=== PATIENT | female | born 1950 | race African-American/Black ===

== ENCOUNTER 2023-07-23 23:17 | Inpatient (IN) | payer OTHER ==
--- OUTSIDE RECORDS SUMMARY | 2023-07-23 23:20 | XMS REPORT | Continuity of Care Document ---
Author Name Unknown Address [address] [facility] [address] [place] [address] [facility] Address [address] [facility] 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 Benign hypertensi on with chronic kidney disease, stage III Problem [facility] [id number] Spasm of muscle of lower back Problem [facility] [id number] Strain of lumbar region, initial encounter Problem [facility] [id number] Muscle spasms of both lower extremitie s Problem [facility] [id number] Obesity (BMI 30-39.9) Problem [facility] Hypertensi on Hypertensi on Problem [facility] [id number] Stage 3a chronic kidney disease Problem [facility] Allergies, Adverse Reactions, Alerts Allergy Name Allergy Type Status Severity Reaction(s) Onset Date Inactive Date Treating Clinician Comments Source Penicill in Penic[place] in Active rash [facility] Social History Social Habit Start Date Stop Date Quantity Comments Source History of Tobacco Use [facility] Sex Assigned At [facility] Smoking Status Start Date Stop Date Source Never Smoker [facility] Medications Ordered Medication Name Filled Medication Name Start Date Stop Date Current Medication? Ordering Clinician Indication Dosage Frequency Signature (SIG) Comments Components Source Fluticasone Propionate 50 MCG/ACT Fluticasone Propionate 50 MCG/ACT 3-0 12-20 00:00: 00 No 1{spray _in_eac h_nostr il} QD Fluticason e Propionate 50 MCG/ACT Loratadine 10 MG Loratadine 10 MG 2022-0 12-20 00:00: 00 No 1{table t} QD Loratadine 10 MG Benzonatate 100 MG Benzonatate 100 MG 2022-0 12-20 00:00: 00 No 1{capsu le_as_n eeded} TID Benzonatat e 100 MG Fluticasone Propionate 50 MCG/ACT Fluticasone Propionate 50 MCG/ACT 2022-0 12-20 00:00: 00 No 1{spray _in_eac h_nostr il} QD Fluticason e Propionate 50 MCG/ACT Loratadine 10 MG Loratadine 10 MG 0 12-20 00:00: 00 No 1{table t} QD Loratadine 10 MG Benzonatate 100 MG Benzonatate 100 MG 2022-0 12-20 00:00: 00 No 1{capsu le_as_n eeded} TID Benzonatat e 100 MG Fluticasone Propionate 50 MCG/ACT Fluticasone Propionate 50 MCG/ACT 2022-0 12-20 00:00: 00 No 1{spray _in_eac h_nostr il} QD Fluticason e Propionate 50 MCG/ACT Loratadine 10 MG Loratadine 10 MG 2022-0 12-20 00:00: 00 No 1{table t} QD Loratadine 10 MG Benzonatate 100 MG Benzonatate 100 MG 2022-0 12-20 00:00: 00 No 1{capsu le_as_n eeded} TID Benzonatat e 100 MG Fluticasone Propionate 50 MCG/ACT Fluticasone Propionate 50 MCG/ACT 3-0 12-20 00:00: 00 No 1{spray _in_eac h_nostr il} QD Fluticason e Propionate 50 MCG/ACT Loratadine 10 MG Loratadine 10 MG 2022-0 12-20 00:00: 00 No 1{table t} QD Loratadine 10 MG Benzonatate 100 MG Benzonatate 100 MG 2022-0 12-20 00:00: 00 No 1{capsu le_as_n eeded} TID Benzonatat e 100 MG Loratadine 10 MG Loratadine 10 MG 2022-0 12-20 00:00: 00 No 1{table t} QD Loratadine 10 MG Fluticasone Propionate 50 MCG/ACT Fluticasone Propionate 50 MCG/ACT 3-0 12-20 00:00: 00 No 1{spray _in_eac h_nostr il} QD Fluticason e Propionate 50 MCG/ACT Loratadine 10 MG Loratadine 10 MG 2022-0 12-20 00:00: 00 No 1{table t} QD Loratadine 10 MG Fluticasone Propionate 50 MCG/ACT Fluticasone Propionate 50 MCG/ACT 3-0 12-20 00:00: 00 No 1{spray _in_eac h_nostr il} QD Fluticason e Propionate 50 MCG/ACT Loratadine 10 MG Loratadine 10 MG 2022-0 12-20 00:00: 00 No 1{table t} QD Loratadine 10 MG Fluticasone Propionate 50 MCG/ACT Fluticasone Propionate 50 MCG/ACT 3-0 12-20 00:00: 00 No 1{spray _in_eac h_nostr il} QD Fluticason e Propionate 50 MCG/ACT Loratadine 10 MG Loratadine 10 MG 2022-0 12-20 00:00: 00 No 1{table t} QD Loratadine 10 MG Fluticasone Propionate 50 MCG/ACT Fluticasone Propionate 50 MCG/ACT 3-0 12-20 00:00: 00 No 1{spray _in_eac h_nostr il} QD Fluticason e Propionate 50 MCG/ACT Loratadine 10 MG Loratadine 10 MG 2022-0 12-20 00:00: 00 No 1{table t} QD Loratadine 10 MG Fluticasone Propionate 50 MCG/ACT Fluticasone Propionate 50 MCG/ACT 2023-0 7-11 00:00: 00 No 1{spray _in_eac h_nostr il} QD Fluticason e Propionate 50 MCG/ACT Loratadine 10 MG Loratadine 10 MG 3-0 7-11 00:00: 00 No 1{table t} QD Loratadine 10 MG Fluticasone Propionate 50 MCG/ACT Fluticasone Propionate 50 MCG/ACT 2023-0 7-11 00:00: 00 No 1{spray _in_eac h_nostr il} QD Fluticason e Propionate 50 MCG/ACT Loratadine 10 MG Loratadine 10 MG 3-0 7-11 00:00: 00 No 1{table t} QD Loratadine 10 MG Fluticasone Propionate 50 MCG/ACT Fluticasone Propionate 50 MCG/ACT 3-0 7-11 00:00: 00 No 1{spray _in_eac h_nostr il} QD Fluticason e Propionate 50 MCG/ACT Ketorolac 15mg Ketorolac 15mg 2022-0 5-17 00:00: 00 No [facility]mg [facility] Ketorolac 15mg Ketorolac 15mg 2022-0 5-17 00:00: 00 No 30mg [facility] Ketorolac 15mg Ketorolac 15mg 2022-0 5-17 00:00: 00 No 30mg [facility] Ketorolac 15mg Ketorolac 15mg 2022-0 5-17 00:00: 00 No 30mg [facility] Ketorolac 15mg Ketorolac 15mg 2022-0 5-17 00:00: 00 No 30mg [facility] Ketorolac 15mg Ketorolac 15mg 2022-0 5-17 00:00: 00 No 30mg [facility] Ketorolac 15mg Ketorolac 15mg 2022-0 5-17 00:00: 00 No 30mg [facility] Ketorolac 15mg Ketorolac 15mg 2022-0 5-17 00:00: 00 No 30mg [facility] Ketorolac 15mg Ketorolac 15mg 2022-0 5-17 00:00: 00 No 30mg [facility] Ketorolac 15mg Ketorolac 15mg 2022-0 5-17 00:00: 00 No 30mg [facility] Ketorolac 15mg Ketorolac 15mg 2022-0 5-17 00:00: 00 No 30mg [facility] Ketorolac 15mg Ketorolac 15mg 2022-0 5-17 00:00: 00 No 30mg [facility] Ketorolac 15mg Ketorolac 15mg 2022-0 5-17 00:00: 00 No 30mg [facility] Ketorolac 15mg Ketorolac 15mg 2022-0 5-17 00:00: 00 No 30mg [facility] Ketorolac 15mg Ketorolac 15mg 2022-0 5-17 00:00: 00 No 30mg [facility] Ketorolac 15mg Ketorolac 15mg 2022-0 5-17 00:00: 00 No 30mg [facility] Ketorolac 15mg Ketorolac 15mg 2022-0 5-17 00:00: 00 No 30mg [facility] Ketorolac 15mg Ketorolac 15mg 2022-0 5-17 00:00: 00 No 30mg [facility] tiZANidine HCl 4 MG tiZANidine HCl 4 MG 2-0 5-17 00:00: 00 05-24 00:00 :00 No 1{table t_as_ne eded} TID tiZANidine HCl 4 MG Lisinopril Lisinopril 2019-0 6- 00:00: 00 Yes Maddie Hart 1 tablet [facility] Lisinopril 10 MG Lisinopril 10 MG 2019-0 6- 00:00: 00 No 1{table t} QD Lisinopril 10 MG Aspirin Adult Low Strength Aspirin Adult Low Strength Yes Maddie Hart 1 tablet Common [facility] Atenolol Atenolol Yes Maddie Hart take one tablet by mouth [facility] Aspirin Adult Low Strength 81 MG Aspirin Adult Low Strength 81 MG No 1{table t} QD Aspirin Adult Low Strength 81 MG Lisinopril 10 MG Lisinopril 10 MG No 1{table t} QD Lisinopril 10 MG Atenolol 100 MG Atenolol 100 MG No 1{table t} QD Atenolol 100 MG Lisinopril 10 MG Lisinopril 10 MG No 1{table t} QD Lisinopril 10 MG Aspirin Adult Low Strength 81 MG Aspirin Adult Low Strength 81 MG No 1{table t} QD Aspirin Adult Low Strength 81 MG Atenolol 100 MG Atenolol 100 MG No 1{table t} QD Atenolol 100 MG Atenolol 100 MG Atenolol 100 MG No 1{table t} QD Atenolol 100 MG Aspirin Adult Low Strength 81 MG Aspirin Adult Low Strength 81 MG No 1{table t} QD Aspirin Adult Low Strength 81 MG Lisinopril 10 MG Lisinopril 10 MG No 1{table t} QD Lisinopril 10 MG Atenolol 100 MG Atenolol 100 MG No 1{table t} QD Atenolol 100 MG Lisinopril 30 MG Lisinopril 30 MG No 1{table t} QD Lisinopril 30 MG Atenolol 100 MG Atenolol 100 MG No 1{table t} QD Atenolol 100 MG Lisinopril 10 MG Lisinopril 10 MG No 1{table t} QD Lisinopril 10 MG Atenolol 100 MG Atenolol 100 MG No 1{table t} QD Atenolol 100 MG Lisinopril 30 MG Lisinopril 30 MG No 1{table t} QD Lisinopril 30 MG Atenolol 100 MG Atenolol 100 MG No 1{table t} QD Atenolol 100 MG Lisinopril 10 MG Lisinopril 10 MG No 1{table t} QD Lisinopril 10 MG Atenolol 100 MG Atenolol 100 MG No 1{table t} QD Atenolol 100 MG Lisinopril 30 MG Lisinopril 30 MG No 1{table t} QD Lisinopril 30 MG Atenolol 100 MG Atenolol 100 MG No 1{table t} QD Atenolol 100 MG Lisinopril 10 MG Lisinopril 10 MG No 1{table t} QD Lisinopril 10 MG Atenolol 100 MG Atenolol 100 MG No 1{table t} QD Atenolol 100 MG Lisinopril 30 MG Lisinopril 30 MG No 1{table t} QD Lisinopril 30 MG Atenolol 100 MG Atenolol 100 MG No 1{table t} QD Atenolol 100 MG Lisinopril 10 MG Lisinopril 10 MG No 1{table t} QD Lisinopril 10 MG Lisinopril 30 MG Lisinopril 30 MG No 1{table t} QD Lisinopril 30 MG Pantoprazol e Sodium 40 MG Pantoprazol e Sodium 40 MG No Pantoprazo le Sodium 40 MG Atenolol 100 MG Atenolol 100 MG No 1{table t} QD Atenolol 100 MG Lisinopril 30 MG Lisinopril 30 MG No 1{table t} QD Lisinopril 30 MG Pantoprazol e Sodium 40 MG Pantoprazol e Sodium 40 MG No Pantoprazo le Sodium 40 MG Atenolol 100 MG Atenolol 100 MG No 1{table t} QD Atenolol 100 MG Lisinopril 30 MG Lisinopril 30 MG No 1{table t} QD Lisinopril 30 MG Pantoprazol e Sodium 40 MG Pantoprazol e Sodium 40 MG No Pantoprazo le Sodium 40 MG Atenolol 100 MG Atenolol 100 MG No 1{table t} QD Atenolol 100 MG Lisinopril 30 MG Lisinopril 30 MG No 1{table t} QD Lisinopril 30 MG Pantoprazol e Sodium 40 MG Pantoprazol e Sodium 40 MG No Pantoprazo le Sodium 40 MG Atenolol 100 MG Atenolol 100 MG No 1{table t} QD Atenolol 100 MG Lisinopril 30 MG Lisinopril 30 MG No 1{table t} QD Lisinopril 30 MG Pantoprazol e Sodium 40 MG Pantoprazol e Sodium 40 MG No Pantoprazo le Sodium 40 MG Atenolol 100 MG Atenolol 100 MG No 1{table t} QD Atenolol 100 MG Lisinopril 30 MG Lisinopril 30 MG No 1{table t} QD Lisinopril 30 MG Pantoprazol e Sodium 40 MG Pantoprazol e Sodium 40 MG No Pantoprazo le Sodium 40 MG Atenolol 100 MG Atenolol 100 MG No 1{table t} QD Atenolol 100 MG Atenolol 100 MG Atenolol 100 MG No Atenolol 100 MG Lisinopril 30 MG Lisinopril 30 MG No 1{table t} QD Lisinopril 30 MG Pantoprazol e Sodium 40 MG Pantoprazol e Sodium 40 MG No Pantoprazo le Sodium 40 MG Atenolol 100 MG Atenolol 100 MG No 1{table t} QD Atenolol 100 MG Aspirin Adult Low Strength 81 MG Aspirin Adult Low Strength 81 MG No 1{table t} QD Aspirin Adult Low Strength 81 MG Lisinopril 10 MG Lisinopril 10 MG No 1{table t} QD Lisinopril 10 MG Atenolol 100 MG Atenolol 100 MG No 1{table t} QD Atenolol 100 MG Aspirin Adult Low Strength 81 MG Aspirin Adult Low Strength 81 MG No 1{table t} QD Aspirin Adult Low Strength 81 MG Aspirin Adult Low Strength 81 MG Aspirin Adult Low Strength 81 MG No 1{table t} QD Aspirin Adult Low Strength 81 MG Lisinopril 10 MG Lisinopril 10 MG No 1{table t} QD Lisinopril 10 MG Atenolol 100 MG Atenolol 100 MG No 1{table t} QD Atenolol 100 MG Aspirin Adult Low Strength 81 MG Aspirin Adult Low Strength 81 MG No 1{table t} QD Aspirin Adult Low Strength 81 MG Lisinopril 10 MG Lisinopril 10 MG No 1{table t} QD Lisinopril 10 MG Atenolol 100 MG Atenolol 100 MG No 1{table t} QD Atenolol 100 MG Vital Signs Vital Name Observation Time Observation Value Comments S lynda height 2023-05-26 11:20:00 59 [in_i] Commo n [facility] weight 2023-05-26 11:20:00 164.4 [lb_av] Co [facility] temperature 2023-05-26 11:20:00 97.1 [degF] Com mon [facility] bmi 2023-05-26 11:20:00 33.2 kg/m2 Commo n [facility] oximetry 2023-05-26 11:20:00 99 % Commo n [facility] respiratory rate 2023-05-26 11:20:00 16 /min [facility] blood pressure systolic 2023-05-26 11:20:00 132 mm[Hg] [facility] blood pressure diastolic 2023-05-26 11:20:00 76 mm[Hg] [facility] height 2023-02-23 11:00:00 59 [in_i] Commo n [facility] weight 2023-02-23 11:00:00 167.4 [lb_av] Co mmon [facility] temperature 2023-02-23 11:00:00 97.3 [degF] Com [facility] bmi 2023-02-23 11:00:00 33.81 kg/m2 Comm on [facility] oximetry 2023-02-23 11:00:00 96 % Commo n [facility] respiratory rate 2023-02-23 11:00:00 16 /min [facility] blood pressure systolic 2023-02-23 11:00:00 138 mm[Hg] [facility] blood pressure diastolic 2023-02-23 11:00:00 82 mm[Hg] [facility] height 2023-01-20 13:00:00 59 [in_i] Commo n [facility] weight 2023-01-20 13:00:00 168.6 [lb_av] Co mmon [facility] temperature 2023-01-20 13:00:00 97.9 [degF] Com [facility] bmi 2023-01-20 13:00:00 34.05 kg/m2 Comm on [facility] oximetry 2023-01-20 13:00:00 98 % Commo n [facility] respiratory rate 2023-01-20 13:00:00 16 /min [facility] blood pressure systolic 2023-01-20 13:00:00 134 mm[Hg] [facility] blood pressure diastolic 2023-01-20 13:00:00 82 mm[Hg] [facility] height 2023-01-20 13:20:00 59 [in_i] Commo n [facility] weight 2023-01-20 13:20:00 168.6 [lb_av] Co mmon [facility] temperature 2023-01-20 13:20:00 97.9 [degF] Com [facility] bmi 2023-01-20 13:20:00 34.05 kg/m2 Comm on [facility] oximetry 2023-01-20 13:20:00 98 % Commo n [facility] respiratory rate 2023-01-20 13:20:00 16 /min Common [facility] blood pressure systolic 2023-01-20 13:20:00 134 mm[Hg] [facility] blood pressure diastolic 2023-01-20 13:20:00 82 mm[Hg] [facility] height 2022-12-20 11:40:00 59 [in_i] Commo n [facility] weight 2022-12-20 11:40:00 171 [lb_av] Comm on [facility] temperature 2022-12-20 11:40:00 98.6 [degF] Com [facility] bmi 2022-12-20 11:40:00 34.53 kg/m2 Comm on [facility] height 2022-08-31 10:20:00 59 [in_i] Commo n [facility] weight 2022-08-31 10:20:00 172 [lb_av] Comm on [facility] temperature 2022-08-31 10:20:00 98.0 [degF] Com mon [facility] bmi 2022-08-31 10:20:00 34.74 kg/m2 Comm on [facility] oximetry 2022-08-31 10:20:00 99 % Commo n [facility] respiratory rate 2022-08-31 10:20:00 17 /min Common [facility] blood pressure systolic 2022-08-31 10:20:00 134 mm[Hg] [facility] blood pressure diastolic 2022-08-31 10:20:00 78 mm[Hg] Common [facility] height 2022-06-20 11:40:00 59 [in_i] Commo n [facility] weight 2022-06-20 11:40:00 175 [lb_av] Comm on [facility] temperature 2022-06-20 11:40:00 97.7 [degF] Com [facility] bmi 2022-06-20 11:40:00 35.34 kg/m2 Comm on [facility] oximetry 2022-06-20 11:40:00 97 % Commo n [facility] respiratory rate 2022-06-20 11:40:00 16 /min Common [facility] blood pressure systolic 2022-06-20 11:40:00 128 mm[Hg] [facility] blood pressure diastolic 2022-06-20 11:40:00 76 mm[Hg] Common [facility] height 2022-03-07 09:20:00 59 [in_i] Commo n [facility] weight 2022-03-07 09:20:00 181.2 [lb_av] Co mmon [facility] temperature 2022-03-07 09:20:00 97.8 [degF] Com [facility] bmi 2022-03-07 09:20:00 36.59 kg/m2 Comm on [facility] oximetry 2022-03-07 09:20:00 98 % Commo n [facility] respiratory rate 2022-03-07 09:20:00 16 /min [facility] blood pressure systolic 2022-03-07 09:20:00 120 mm[Hg] [facility] blood pressure diastolic 2022-03-07 09:20:00 72 mm[Hg] [facility] height 2021-12-06 15:20:00 59 [in_i] Commo n [facility] weight 2021-12-06 15:20:00 186.2 [lb_av] Co [facility] temperature 2021-12-06 15:20:00 98.4 [degF] Com [facility] bmi 2021-12-06 15:20:00 37.6 kg/m2 Commo n [facility] oximetry 2021-12-06 15:20:00 98 % Commo n [facility] respiratory rate 2021-12-06 15:20:00 16 /min [facility] blood pressure systolic 2021-12-06 15:20:00 132 mm[Hg] [facility] blood pressure diastolic 2021-12-06 15:20:00 74 mm[Hg] [facility] height 2021-12-06 16:00:00 59 [in_i] Commo n [facility] weight 2021-12-06 16:00:00 186.2 [lb_av] Co [facility] temperature 2021-12-06 16:00:00 98.4 [degF] Com [facility] bmi 2021-12-06 16:00:00 37.6 kg/m2 Commo n [facility] oximetry 2021-12-06 16:00:00 98 % Commo n [facility] respiratory rate 2021-12-06 16:00:00 16 /min [facility] blood pressure systolic 2021-12-06 16:00:00 132 mm[Hg] Common [facility] blood pressure diastolic 2021-12-06 16:00:00 74 mm[Hg] [facility] height 2021-10-26 14:00:00 59 [in_i] Commo n [facility] weight 2021-10-26 14:00:00 187.6 [lb_av] Co mmon [facility] temperature 2021-10-26 14:00:00 97.5 [degF] Com mon [facility] bmi 2021-10-26 14:00:00 37.89 kg/m2 Comm on [facility] oximetry 2021-10-26 14:00:00 98 % Commo n [facility] respiratory rate 2021-10-26 14:00:00 16 /min [facility] blood pressure systolic 2021-10-26 14:00:00 136 mm[Hg] [facility] blood pressure diastolic 2021-10-26 14:00:00 82 mm[Hg] [facility] Encounters Start Date/Time End Date/Time Encounter Type Admission Type Attending Clinicians Care Facility Care Department Encounter ID Source 2023-01-19 09:15:00 Outpatient [facility]isa sharpe [facility] [id number] [facility] 2022-08-30 13:57:00 Outpatient Teto Lisa [facility] [id number] [facility] 2022-06-20 09:35:00 Outpatient T[facility]Theroni [facility] [id number] [facility] 2021-12-02 13:22:01 Outpatient TetoLisa [facility] [id number] [facility] 2021-10-28 12:27:03 Outpatient Lisa Irene [facility] [id number] [facility] 2021-10-25 14:30:01 Outpatient Lisa Irene [facility] [id number] [facility] 2021-10-22 13:50:00 Outpatient Maddie Hart [facility] [id number] [facility] 2021-07-07 12:24:19 Outpatient Maddie Hart [facility] [id number] [facility] 2021-07-07 11:54:33 Outpatient Maddie Hart [facility] [id number] [facility] 2021-07-07 11:31:04 Outpatient Maddie Hart [facility] [id number] [facility] 2023-06-15 00:00:00 2023-06-15 00:00:00 (TEL) [facility] [id number] [facility] 2023-05-26 00:00:00 2023-05-26 00:00:00 OFFICE VISIT ESTAB PT LEVEL 4 [facility] [id number] [facility] 2023-05-09 00:00:00 2023-05-09 00:00:00 (TEL) [facility] [id number] [facility] 2023-02-23 00:00:00 2023-02-23 00:00:00 OFFICE VISIT ESTAB PT LEVEL 4 [facility] [id number] [facility] 2023-02-16 00:00:00 2023-02-16 00:00:00 (TEL) [facility] [id number] [facility] 2023-01-20 00:00:00 2023-01-20 00:00:00 OFFICE VISIT ESTAB PT LEVEL 4 [facility] [id number] [facility] 2023-01-20 00:00:00 2023-01-20 00:00:00 SUB ANNUAL [facility] VIS[facility] [id number] [facility] 2023-01-12 00:00:00 2023-01-12 00:00:00 (TEL) [facility] [id number] [facility] 2022-12-20 00:00:00 2022-12-20 00:00:00 OFFICE VISIT ESTAB PT LEVEL 3 [facility] [id number] [facility] 2022-08-31 00:00:00 2022-08-31 00:00:00 OFFICE VISIT ESTAB PT LEVEL 4 [facility] [id number] [facility] 2022-06-20 00:00:00 2022-06-20 00:00:00 OFFICE VISIT ESTAB PT LEVEL 3 [facility] [id number] [facility] 2022-03-07 00:00:00 2022-03-07 00:00:00 OFFICE VISIT ESTAB PT LEVEL 4 [facility] [id number] [facility] 2022-02-22 00:00:00 2022-02-22 00:00:00 (TEL) [facility] [id number] [facility] 2021-12-06 00:00:00 2021-12-06 00:00:00 OFFICE VISIT EST PT LEVEL 3 [facility] [id number] [facility] 2021-12-06 00:00:00 2021-12-06 00:00:00 (MCR WELL) Medicare Wellness [facility] [id number] [facility] 2021-12-06 00:00:00 2021-12-06 00:00:00 (TEL) [facility] [id number] [facility] 2021-10-26 00:00:00 2021-10-26 00:00:00 OFFICE VISIT EST PT LEVEL [id number] [facility] 2020-10-05 00:00:00 2020-10-05 00:00:[address] [facility] [id number] [facility] 2020-09-02 00:00:00 2020-09-02 00:00:00 Outpatient [facility] [id number] [facility] 2020-07-06 00:00:00 2020-07-06 00:00:00 Outpatient [facility] [id number] [facility] 2020-06-17 00:00:00 2020-06-17 00:00:00 Outpatient [facility] [id number] [facility] 2020-04-14 00:00:00 2020-04-14 00:00:00 Outpatient [facility] [id number] [facility] 2019-12-25 11:40:00 2019-12-25 11:40:[address] [facility] [id number] [facility] 2019-11-11 11:40:00 2019-11-11 11:40:00 [facility] [id number] [facility] 2019-08-13 09:00:00 2019-08-13 09:00:[address] [facility] [id number] [facility] 2019-05-10 08:20:00 2019-05-10 08:20:[address] [facility] [id number] [facility] 2018-08-24 09:41:00 2018-08-24 09:41:00 [facility] [address] [facility] [id number] [facility] 2018-07-05 10:00:00 2018-07-05 10:00:00 Outpatient [facility] [id number] [facility] 2018-02-09 10:52:00 2018-02-09 10:52:00 Outpatient [facility] [id number] [facility] 2018 09:34:00 2018 09:34:00 Outpatient [facility] [id number] [facility] 2018-01-29 09:00:00 2018-01-29 09:00:00 Outpatient [facility] [id number] [facility] Results Test Description Test Time Test Comments Results Result Co mments Source [id number] 00:00:00* Test Item Value Reference Range Interpretation Comme nts FERRITIN (test code = 55871-8) 101 NG/ML See_Comment [Automated messa ge] The system which generated this result transmitted reference range: 13-200 NG/ML. The reference range was not used to interpret this result as normal/abnormal. COMPREHENSIVE METABOLIC [id number] 00:00:00* Test Item Value Reference Range Interpretation Comme nts ALBUMIN (test code = 1751-7) 3.3 G/DL See_Comment L [Automated messa ge] The system which generated this result transmitted reference range: 3.5-5.2 G/DL. The reference range was not used to interpret this result as normal/abnormal. ALKALINE PHOSPHATASE (test code = 6768-6) 60 U/L See_Comment [Automated message] The system which generated this result transmitted reference range: 40-142 U/L. The reference range was not used to interpret this result as normal/abnormal. BILIRUBIN, TOTAL (test code = 1975-2) 0.6 MG/DL See_Comment [Automated message] The system which generated this result transmitted reference range: <=1.2 MG/DL. The reference range was not used to interpret this result as normal/abnormal. BUN (test code = 3094-0) 12 MG/DL See_Comment [Automated messa ge] The system which generated this result transmitted reference range: 8-23 MG/DL. The reference range was not used to interpret this result as normal/abnormal. CALCIUM (test code = 58350-0) 9.5 MG/DL See_Comment [Automated messa ge] The system which generated this result transmitted reference range: 8.5-10.5 MG/DL. The reference range was not used to interpret this result as normal/abnormal. CALC A/G RATIO (test code = 1759-0) 0.8 RATIO See_Comment L [Automated messa ge] The system which generated this result transmitted reference range: 1.0-2.6 RATIO. The reference range was not used to interpret this result as normal/abnormal. CALC BUN/CREAT (test code = 3097-3) 13 RATIO See_Comment [Automated messa ge] The system which generated this result transmitted reference range: 6-28 RATIO. The reference range was not used to interpret this result as normal/abnormal. CALC GLOBULIN (test code = 74067-5) 3.9 G/DL See_Comment H [Automated messa ge] The system which generated this result transmitted reference range: 1.9-3.7 G/DL. The reference range was not used to interpret this result as normal/abnormal. CARBON DIOXIDE (test code = 1963-8) 28 MEQ/L See_Comment [Automated messa ge] The system which generated this result transmitted reference range: 19-31 MEQ/L. The reference range was not used to interpret this result as normal/abnormal. CHLORIDE (test code = 2075-0) 108 MEQ/L See_Comment H [Automated messa ge] The system which generated this result transmitted reference range: 95-107 MEQ/L. The reference range was not used to interpret this result as normal/abnormal. CREATININE (test code = 2160-0) 0.92 MG/DL See_Comment [Automated messa ge] The system which generated this result transmitted reference range: 0.60-1.30 MG/DL. The reference range was not used to interpret this result as normal/abnormal. eGFR (2020 CKD-EPI) (test code = 85921-3) 66 ML/MIN/1.73 See_Comment [Automated messa ge] The system which generated this result transmitted reference range: >60 ML/MIN/1.73. The reference range was not used to interpret this result as normal/abnormal. GLUCOSE (test code = 1558-6) 95 MG/DL See_Comment [Automated messa ge] The system which generated this result transmitted reference range: 70-99 MG/DL. The reference range was not used to interpret this result as normal/abnormal. POTASSIUM (test code = 2823-3) 4.5 MEQ/L See_Comment [Automated messa ge] The system which generated this result transmitted reference range: 3.5-5.4 MEQ/L. The reference range was not used to interpret this result as normal/abnormal. PROTEIN, TOTAL (test code = 2885-2) 7.2 G/DL See_Comment [Automated messa ge] The system which generated this result transmitted reference range: 6.1-8.3 G/DL. The reference range was not used to interpret this result as normal/abnormal. AST (test code = 1920-8) 14 U/L See_Comment [Automated messa ge] The system which generated this result transmitted reference range: 9-40 U/L. The reference range was not used to interpret this result as normal/abnormal. ALT (test code = 1742-6) 7 U/L See_Comment [Automated messa ge] The system which generated this result transmitted reference range: 5-40 U/L. The reference range was not used to interpret this result as normal/abnormal. SODIUM (test code = 2951-2) 141 MEQ/L See_Comment [Automated messa ge] The system which generated this result transmitted reference range: 133-146 MEQ/L. The reference range was not used to interpret this result as normal/abnormal. CBC W/AUTO [id number] 00:00:00* Test Item Value Reference Range Interpretation Comme nts NUCLEATED RBCS (test code = 70613-3) 0.0 /100 WBC'S See_Comment [Automated messa ge] The system which generated this result transmitted reference range: 0.0 /100 WBC'S. The reference range was not used to interpret this result as normal/abnormal. ABSOLUTE EOSINOPHILS (test code = 04667-7) 0.07 K/UL See_Comment [Automated messa ge] The system which generated this result transmitted reference range: 0.00-0.50 K/UL. The reference range was not used to interpret this result as normal/abnormal. ABSOLUTE LYMPHOCYTES (test code = 06186-4) 1.80 K/UL See_Comment [Automated messa ge] The system which generated this result transmitted reference range: 1.00-4.00 K/UL. The reference range was not used to interpret this result as normal/abnormal. ABSOLUTE MONOCYTES (test code = 43048-1) 0.26 K/UL See_Comment [Automated messa ge] The system which generated this result transmitted reference range: 0.20-1.00 K/UL. The reference range was not used to interpret this result as normal/abnormal. ABSOLUTE NEUTROPHILS (test code = 95437-0) 1.62 K/UL See_Comment [Automated messa ge] The system which generated this result transmitted reference range: 1.50-7.50 K/UL. The reference range was not used to interpret this result as normal/abnormal. BASOPHILS (test code = 60451-6) 0.5 % EOSINOPHILS (test code = 94069-2) 1.8 % HEMATOCRIT (test code = 77633-8) 29.8 % See_Comment L [Automated messa ge] The system which generated this result transmitted reference range: 34.0-45.0 %. The reference range was not used to interpret this result as normal/abnormal. HEMOGLOBIN (test code = 718-7) 9.2 G/DL See_Comment L [Automated messa ge] The system which generated this result transmitted reference range: 11.5-15.5 G/DL. The reference range was not used to interpret this result as normal/abnormal. LYMPHOCYTES (test code = 94659-2) 47.5 % MCH (test code = 61786-2) 27.5 PG See_Comment [Automated messa ge] The system which generated this result transmitted reference range: 25.0-33.0 PG. The reference range was not used to interpret this result as normal/abnormal. MCHC (test code = 84373-1) 30.9 G/DL See_Comment L [Automated messa ge] The system which generated this result transmitted reference range: 31.0-36.0 G/DL. The reference range was not used to interpret this result as normal/abnormal. MCV (test code = 52545-7) 89.0 fL See_Comment [Automated messa ge] The system which generated this result transmitted reference range: 80.0-99.0 fL. The reference range was not used to interpret this result as normal/abnormal. MONOCYTES (test code = 69593-4) 6.9 % NEUTROPHILS (test code = 39300-1) 42.8 % PLATELET COUNT (test code = 75240-2) 175 K/UL See_Comment [Automated messa ge] The system which generated this result transmitted reference range: 130-400 K/UL. The reference range was not used to interpret this result as normal/abnormal. RBC (test code = 68781-9) 3.35 M/UL See_Comment L [Automated messa ge] The system which generated this result transmitted reference range: 3.80-5.40 M/UL. The reference range was not used to interpret this result as normal/abnormal. RDW (test code = 01794-7) 17.1 % See_Comment H [Automated messa ge] The system which generated this result transmitted reference range: 11.5-15.0 %. The reference range was not used to interpret this result as normal/abnormal. WBC (test code = 20268-6) 3.8 K/UL See_Comment [Automated messa ge] The system which generated this result transmitted reference range: 3.5-11.0 K/UL. The reference range was not used to interpret this result as normal/abnormal. [id number] 00:00:00* Test Item Value Reference Range Interpretation Comme nts FERRITIN (test code = 41292-9) 81 NG/ML See_Comment [Automated messa ge] The system which generated this result transmitted reference range: 13-200 NG/ML. The reference range was not used to interpret this result as normal/abnormal. HEMOGLOBIN [id number] 00:00:00* Test Item Value Reference Range Interpretation Comme nts HEMOGLOBIN A1c (test code = 4548-4) 5.9 % See_Comment H [Automated messa ge] The system which generated this result transmitted reference range: 4.2-5.6 %. The reference range was not used to interpret this result as normal/abnormal. COMPREHENSIVE METABOLIC [id number] 00:00:00* Test Item Value Reference Range Interpretation Comme nts ALBUMIN (test code = 1751-7) 3.5 G/DL See_Comment [Automated messa ge] The system which generated this result transmitted reference range: 3.5-5.2 G/DL. The reference range was not used to interpret this result as normal/abnormal. ALKALINE PHOSPHATASE (test code = 6768-6) 73 U/L See_Comment [Automated message] The system which generated this result transmitted reference range: 40-142 U/L. The reference range was not used to interpret this result as normal/abnormal. BILIRUBIN, TOTAL (test code = 1975-2) 0.3 MG/DL See_Comment [Automated message] The system which generated this result transmitted reference range: <=1.2 MG/DL. The reference range was not used to interpret this result as normal/abnormal. BUN (test code = 3094-0) 15 MG/DL See_Comment [Automated messa ge] The system which generated this result transmitted reference range: 8-23 MG/DL. The reference range was not used to interpret this result as normal/abnormal. CALCIUM (test code = 78983-5) 9.4 MG/DL See_Comment [Automated messa ge] The system which generated this result transmitted reference range: 8.5-10.5 MG/DL. The reference range was not used to interpret this result as normal/abnormal. CALC A/G RATIO (test code = 1759-0) 1.0 RATIO See_Comment [Automated messa ge] The system which generated this result transmitted reference range: 1.0-2.6 RATIO. The reference range was not used to interpret this result as normal/abnormal. CALC BUN/CREAT (test code = 3097-3) 15 RATIO See_Comment [Automated messa ge] The system which generated this result transmitted reference range: 6-28 RATIO. The reference range was not used to interpret this result as normal/abnormal. CALC GLOBULIN (test code = 52109-3) 3.4 G/DL See_Comment [Automated messa ge] The system which generated this result transmitted reference range: 1.9-3.7 G/DL. The reference range was not used to interpret this result as normal/abnormal. CARBON DIOXIDE (test code = 1963-8) 27 MEQ/L See_Comment [Automated messa ge] The system which generated this result transmitted reference range: 19-31 MEQ/L. The reference range was not used to interpret this result as normal/abnormal. CHLORIDE (test code = 2075-0) 113 MEQ/L See_Comment H [Automated messa ge] The system which generated this result transmitted reference range: 95-107 MEQ/L. The reference range was not used to interpret this result as normal/abnormal. CREATININE (test code = 2160-0) 0.98 MG/DL See_Comment [Automated messa ge] The system which generated this result transmitted reference range: 0.60-1.30 MG/DL. The reference range was not used to interpret this result as normal/abnormal. eGFR (2020 CKD-EPI) (test code = 31811-7) 61 ML/MIN/1.73 See_Comment [Automated messa ge] The system which generated this result transmitted reference range: >60 ML/MIN/1.73. The reference range was not used to interpret this result as normal/abnormal. GLUCOSE (test code = 1558-6) 95 MG/DL See_Comment [Automated messa ge] The system which generated this result transmitted reference range: 70-99 MG/DL. The reference range was not used to interpret this result as normal/abnormal. POTASSIUM (test code = 2823-3) 4.2 MEQ/L See_Comment [Automated messa ge] The system which generated this result transmitted reference range: 3.5-5.4 MEQ/L. The reference range was not used to interpret this result as normal/abnormal. PROTEIN, TOTAL (test code = 2885-2) 6.9 G/DL See_Comment [Automated messa ge] The system which generated this result transmitted reference range: 6.1-8.3 G/DL. The reference range was not used to interpret this result as normal/abnormal. AST (test code = 1920-8) 15 U/L See_Comment [Automated messa ge] The system which generated this result transmitted reference range: 9-40 U/L. The reference range was not used to interpret this result as normal/abnormal. ALT (test code = 1742-6) 9 U/L See_Comment [Automated messa ge] The system which generated this result transmitted reference range: 5-40 U/L. The reference range was not used to interpret this result as normal/abnormal. SODIUM (test code = 2951-2) 146 MEQ/L See_Comment [Automated messa ge] The system which generated this result transmitted reference range: 133-146 MEQ/L. The reference range was not used to interpret this result as normal/abnormal. CBC W/AUTO [id number] 00:00:00* Test Item Value Reference Range Interpretation Comme nts NUCLEATED RBCS (test code = 92095-4) 0.0 /100 WBC'S See_Comment [Automated messa ge] The system which generated this result transmitted reference range: 0.0 /100 WBC'S. The reference range was not used to interpret this result as normal/abnormal. ABSOLUTE EOSINOPHILS (test code = 62274-5) 0.06 K/UL See_Comment [Automated messa ge] The system which generated this result transmitted reference range: 0.00-0.50 K/UL. The reference range was not used to interpret this result as normal/abnormal. ABSOLUTE LYMPHOCYTES (test code = 36658-7) 1.83 K/UL See_Comment [Automated messa ge] The system which generated this result transmitted reference range: 1.00-4.00 K/UL. The reference range was not used to interpret this result as normal/abnormal. ABSOLUTE MONOCYTES (test code = 99156-1) 0.28 K/UL See_Comment [Automated messa ge] The system which generated this result transmitted reference range: 0.20-1.00 K/UL. The reference range was not used to interpret this result as normal/abnormal. ABSOLUTE NEUTROPHILS (test code = 75977-6) 1.53 K/UL See_Comment [Automated messa ge] The system which generated this result transmitted reference range: 1.50-7.50 K/UL. The reference range was not used to interpret this result as normal/abnormal. BASOPHILS (test code = 18399-5) 0.8 % EOSINOPHILS (test code = 95560-3) 1.6 % HEMATOCRIT (test code = 09980-3) 31.1 % See_Comment L [Automated messa ge] The system which generated this result transmitted reference range: 34.0-45.0 %. The reference range was not used to interpret this result as normal/abnormal. HEMOGLOBIN (test code = 718-7) 9.6 G/DL See_Comment L [Automated messa ge] The system which generated this result transmitted reference range: 11.5-15.5 G/DL. The reference range was not used to interpret this result as normal/abnormal. LYMPHOCYTES (test code = 81270-2) 48.8 % MCH (test code = 50265-7) 27.1 PG See_Comment [Automated messa ge] The system which generated this result transmitted reference range: 25.0-33.0 PG. The reference range was not used to interpret this result as normal/abnormal. MCHC (test code = 45838-6) 30.9 G/DL See_Comment L [Automated messa ge] The system which generated this result transmitted reference range: 31.0-36.0 G/DL. The reference range was not used to interpret this result as normal/abnormal. MCV (test code = 62122-5) 87.9 fL See_Comment [Automated messa ge] The system which generated this result transmitted reference range: 80.0-99.0 fL. The reference range was not used to interpret this result as normal/abnormal. MONOCYTES (test code = 66865-6) 7.5 % NEUTROPHILS (test code = 19910-7) 40.8 % PLATELET COUNT (test code = 13339-3) 194 K/UL See_Comment [Automated messa ge] The system which generated this result transmitted reference range: 130-400 K/UL. The reference range was not used to interpret this result as normal/abnormal. RBC (test code = 53059-8) 3.54 M/UL See_Comment L [Automated messa ge] The system which generated this result transmitted reference range: 3.80-5.40 M/UL. The reference range was not used to interpret this result as normal/abnormal. RDW (test code = 67735-3) 16.2 % See_Comment H [Automated messa ge] The system which generated this result transmitted reference range: 11.5-15.0 %. The reference range was not used to interpret this result as normal/abnormal. WBC (test code = 75262-2) 3.8 K/UL See_Comment [Automated messa ge] The system which generated this result transmitted reference range: 3.5-11.0 K/UL. The reference range was not used to interpret this result as normal/abnormal. [id number] 00:00:00* Test Item Value Reference Range Interpretation Comme nts FERRITIN (test code = 87257-4) 131 NG/ML See_Comment [Automated messa ge] The system which generated this result transmitted reference range: 13-200 NG/ML. The reference range was not used to interpret this result as normal/abnormal. HEMOGLOBIN [id number] 00:00:00* Test Item Value Reference Range Interpretation Comme nts HEMOGLOBIN A1c (test code = 4548-4) 6.0 % See_Comment H [Automated messa ge] The system which generated this result transmitted reference range: 4.2-5.6 %. The reference range was not used to interpret this result as normal/abnormal. LIPID PANEL WITH REFLEX DIRECT [id number] 00:00:00* Test Item Value Reference Range Interpretation Comme nts CALC LDL CHOL (test code = 24539-3) 66 MG/DL See_Comment [Automated messa ge] The system which generated this result transmitted reference range: <100 MG/DL. The reference range was not used to interpret this result as normal/abnormal. CHOLESTEROL (test code = 2093-3) 119 MG/DL See_Comment [Automated messa ge] The system which generated this result transmitted reference range: <200 MG/DL. The reference range was not used to interpret this result as normal/abnormal. HDL CHOLESTEROL (test code = 2085-9) 35 MG/DL See_Comment L [Automated messa ge] The system which generated this result transmitted reference range: >39 MG/DL. The reference range was not used to interpret this result as normal/abnormal. RISK RATIO LDL/HDL (test code = 76709-3) 1.89 RATIO See_Comment [Automated message] The system which generated this result transmitted reference range: <3.22 RATIO. The reference range was not used to interpret this result as normal/abnormal. TRIGLYCERIDES (test code = 2571-8) 96 MG/DL See_Comment [Automated messa ge] The system which generated this result transmitted reference range: <150 MG/DL. The reference range was not used to interpret this result as normal/abnormal. COMPREHENSIVE METABOLIC [id number] 00:00:00* Test Item Value Reference Range Interpretation Comme nts ALBUMIN (test code = 1751-7) 3.6 G/DL See_Comment [Automated messa ge] The system which generated this result transmitted reference range: 3.5-5.2 G/DL. The reference range was not used to interpret this result as normal/abnormal. ALKALINE PHOSPHATASE (test code = 6768-6) 56 U/L See_Comment [Automated message] The system which generated this result transmitted reference range: 40-142 U/L. The reference range was not used to interpret this result as normal/abnormal. BILIRUBIN, TOTAL (test code = 1975-2) 0.5 MG/DL See_Comment [Automated message] The system which generated this result transmitted reference range: <=1.2 MG/DL. The reference range was not used to interpret this result as normal/abnormal. BUN (test code = 3094-0) 11 MG/DL See_Comment [Automated messa ge] The system which generated this result transmitted reference range: 8-23 MG/DL. The reference range was not used to interpret this result as normal/abnormal. CALCIUM (test code = 80806-5) 9.8 MG/DL See_Comment [Automated messa ge] The system which generated this result transmitted reference range: 8.5-10.5 MG/DL. The reference range was not used to interpret this result as normal/abnormal. CALC A/G RATIO (test code = 1759-0) 1.0 RATIO See_Comment [Automated messa ge] The system which generated this result transmitted reference range: 1.0-2.6 RATIO. The reference range was not used to interpret this result as normal/abnormal. CALC BUN/CREAT (test code = 3097-3) 11 RATIO See_Comment [Automated messa ge] The system which generated this result transmitted reference range: 6-28 RATIO. The reference range was not used to interpret this result as normal/abnormal. CALC GLOBULIN (test code = 43757-4) 3.5 G/DL See_Comment [Automated messa ge] The system which generated this result transmitted reference range: 1.9-3.7 G/DL. The reference range was not used to interpret this result as normal/abnormal. CARBON DIOXIDE (test code = 1963-8) 26 MEQ/L See_Comment [Automated messa ge] The system which generated this result transmitted reference range: 19-31 MEQ/L. The reference range was not used to interpret this result as normal/abnormal. CHLORIDE (test code = 2075-0) 109 MEQ/L See_Comment H [Automated messa ge] The system which generated this result transmitted reference range: 95-107 MEQ/L. The reference range was not used to interpret this result as normal/abnormal. CREATININE (test code = 2160-0) 0.99 MG/DL See_Comment [Automated messa ge] The system which generated this result transmitted reference range: 0.60-1.30 MG/DL. The reference range was not used to interpret this result as normal/abnormal. eGFR (2020 CKD-EPI) (test code = 94323-6) 61 ML/MIN/1.73 See_Comment [Automated messa ge] The system which generated this result transmitted reference range: >60 ML/MIN/1.73. The reference range was not used to interpret this result as normal/abnormal. GLUCOSE (test code = 1558-6) 98 MG/DL See_Comment [Automated messa ge] The system which generated this result transmitted reference range: 70-99 MG/DL. The reference range was not used to interpret this result as normal/abnormal. POTASSIUM (test code = 2823-3) 4.5 MEQ/L See_Comment [Automated messa ge] The system which generated this result transmitted reference range: 3.5-5.4 MEQ/L. The reference range was not used to interpret this result as normal/abnormal. PROTEIN, TOTAL (test code = 2885-2) 7.1 G/DL See_Comment [Automated messa ge] The system which generated this result transmitted reference range: 6.1-8.3 G/DL. The reference range was not used to interpret this result as normal/abnormal. AST (test code = 1920-8) 14 U/L See_Comment [Automated messa ge] The system which generated this result transmitted reference range: 9-40 U/L. The reference range was not used to interpret this result as normal/abnormal. ALT (test code = 1742-6) 10 U/L See_Comment [Automated messa ge] The system which generated this result transmitted reference range: 5-40 U/L. The reference range was not used to interpret this result as normal/abnormal. SODIUM (test code = 2951-2) 141 MEQ/L See_Comment [Automated messa ge] The system which generated this result transmitted reference range: 133-146 MEQ/L. The reference range was not used to interpret this result as normal/abnormal. 3D SCR SHERLY BILAT W/CAD3D SCR SHERLY BILAT W/CAD
[2023-07-23] MEDS ORDERED: ACETAMINOPHEN 325 MG TABLET ONE (23:37)
[2023-07-24] LABS: SARS-CoV-2 Antigen Rapid Res Negative (Negative)
[2023-07-24 00:39] LABS: Protime INR 1.4
[2023-07-24 00:43] LABS: Absolute Lymphocytes (CBC) 0.7 K/uL (0.7-4.9); Hematocrit 24.9 % (36.0-45.0); Lymphocytes % 38.5 % (15.3-44.8); MCV 87.7 fL (80-100); MPV 8.4 fL (7.6-11.3); Platelets 134 thou/uL (152-406); RBC Red Blood Cell Count 2.84 M/uL (3.86-4.86)
[2023-07-24 00:52] LABS: Albumin 2.6 g/dL (3.4-5.0); Bilirubin Total 0.6 mg/dL (0.2-1.0); Potassium 3.3 mEq/L (3.5-5.1); Protein, Total 8.4 g/dL (6.4-8.2)
[2023-07-24] MEDS ORDERED: Levofloxacin 750mg IV 750 MG/150 ML BAG IV ONE (01:14)
[2023-07-24] MEDS ORDERED: IBUPROFEN 400 MG TAB ONE (01:34)
[2023-07-24 01:57] LABS: Anisocytosis 1+; Blood Morphology Comment NOTED (NOT SEEN); Platelet Estimate ADEQ; Polychromasia SLIGHT; White Blood Cell Scan OK (OK)
--- NOTE | 2023-07-24 02:28 | ER ---
Nurse's Notes [facility] Name: Kayla Hernandez Age: 73 yrs Sex: Female : 1950 Arrival Date: 07/23/2023 Time: 23:17 Bed 13 Private MD: Diagnosis: Pneumonia, unspecified organism;Dyspnea, unspecified;Hypoxemia Presentation: 07/23 23:28 Chief complaint: Patient states: productive cough and lower back pain 03/21 since [facility] . Coronavirus screen: At this time, the client does not indicate any symptoms associated with coronavirus-19. Ebola Screen: No symptoms or risks identified at this time. Initial Sepsis Screen: Does the patient meet any 2 criteria? No. Patient's initial sepsis screen is negative. Does the patient have a suspected source of infection? No. Patient's initial sepsis screen is negative. Risk Assessment: Do you want to hurt yourself or someone else? Patient reports no desire to harm self or others. Onset of symptoms was July 23, 2023. 23:28 Method Of Arrival: Ambulatory [facility] 23:28 Acuity: JENNIFER 3 6 Triage Assessment: 23:29 General: Appears in no apparent distress. uncomfortable, well groomed, well developed, kc6 Behavior is calm, cooperative, appropriate for age. Pain: Complains of pain in lumbar area, left low back and right low back Pain currently is 10 out of 10 on a pain scale. EENT: No signs and/or symptoms were reported regarding the EENT system. Neuro: Level of Consciousness is awake, alert, obeys commands, Oriented to person, place, time, situation, Appropriate for age. Cardiovascular: Denies chest pain, Heart tones S1 S2 present Capillary refill < 3 seconds. Respiratory: Reports shortness of breath on exertion cough that is productive, Airway is patent Trachea midline Respiratory effort is even, labored, Respiratory pattern is regular, symmetrical, Breath sounds with crackles bilaterally. GI: No signs and/or symptoms were reported involving the gastrointestinal system. : No signs and/or symptoms were reported regarding the genitourinary system. Derm: No signs and/or symptoms reported regarding the dermatologic system. Skin is intact, is healthy with good turgor, Skin is pink, warm \T\ dry. Musculoskeletal: No signs and/or symptoms reported regarding the musculoskeletal system. Circulation, motion, and sensation intact. Capillary refill < 3 seconds, Range of motion: intact in all extremities. Historical: - Allergies: 23:29 PENICILLINS; kc6 - PMHx: 23:29 Hypertensive disorder; kc6 - PSHx: 23:29 tubal ligation; kc6 - Immunization history:: Adult Immunizations up to date. - Social history:: Smoking status: Patient denies any tobacco usage or history of. - Family history:: not pertinent. - Hospitalizations: : No recent hospitalization is reported. Screenin:30 [facility] ED Fall Risk Assessment (Adult) History of falling in the last 3 months, kc6 including since admission No falls in past 3 months (0 pts) Confusion or Disorientation No (0 pts) Intoxicated or Sedated No (0 pts) Impaired Gait No (0 pts) Mobility Assist Device Used No (0 pt) Altered Elimination No (0 pt) Score/Fall Risk Level 0 - 2 = Low Risk. Abuse screen: Denies threats or abuse. Denies injuries from another. Nutritional screening: No deficits noted. Tuberculosis screening: No symptoms or risk factors identified. Assessment: 23:31 Reassessment: please see triage assessment. 6 07/24 00:02 Reassessment: pt appears to be 87% on RA. pt placed on 2L via NC. pt is now 98%. [facility] 00:57 Reassessment: Patient appears in no apparent distress at this time. No changes from [facility] previously documented assessment. Patient and/or family updated on plan of care and expected duration. Pain level reassessed. Patient is alert, oriented x 3, equal unlabored respirations, skin warm/dry/pink. 01:47 Reassessment: Patient appears in no apparent distress at this time. No changes from [facility] previously documented assessment. Patient and/or family updated on plan of care and expected duration. Pain level reassessed. Patient is alert, oriented x 3, equal unlabored respirations, skin warm/dry/pink. 02:29 Reassessment: Patient appears in no apparent distress at this time. No changes from [facility] previously documented assessment. Patient and/or family updated on plan of care and expected duration. Pain level reassessed. Patient is alert, oriented x 3, equal unlabored respirations, skin warm/dry/pink. Vital Signs: 07/23 23:28 BP 189 / 80; Pulse 99; Resp 20 S; Pulse Ox 93% on R/A; Weight 74.84 kg (R); Height 4 kc6 ft. 11 in. (R); Pain 10; 07/24 00:01 Temp 103.2; rn 00:05 BP 163 / 64; kc6 00:46 BP 150 / 61; Pulse 92; Temp 101.5; Pulse Ox 98% on 2 lpm NC; rv1 01:33 Temp 101.1(O); kc6 01:47 BP 145 / 55; Pulse 90; Resp 19 S; Pulse Ox 99% on 2 lpm NC; kc6 02:29 BP 126 / 56; Pulse 83; Resp 16 S; Temp 99.8(O); Pulse Ox 99% on 2 lpm NC; kc6 07/23 23:28 Body Mass Index 33.33 (74.84 kg, 149.86 cm) [facility] 07/23 23:28 Pain Scale: Adult [facility] Vitals: 00:05 Cardiac Rhythm Assessment Sinus rhythm W/unifocal PVC's. [facility] ED Course: 07/23 23:20 Patient arrived in ED. ag3 23:22 Jack Brooks MD is Attending Physician. rn 23:27 Nydia Michaels RN is Primary Nurse. kc6 23:29 Triage completed. kc 23:29 Arm band placed on. kc6 23:30 Patient has correct armband on for positive identification. Bed in low position. Call [facility] light in reach. Side rails up X2. Adult w/ patient. Client placed on continuous cardiac and pulse oximetry monitoring. NIBP monitoring applied. 23:55 XRAY Chest (1 view) In Process Unspecified. EDMS 07/24 00:02 Inserted saline lock: 20 gauge in right antecubital area, using aseptic technique. [facility] Blood collected. Oxygen administration via nasal cannula \T\ 2L/min. 01:26 CT Chest, Abdomen, Pelvis - W/Contrast In Process Unspecified. EDMS 02:27 Angelo Melgar MD is Hospitalizing Provider. rn 03:15 No provider procedures requiring assistance completed. Patient admitted, IV remains in [facility] place. Administered Medications: 07/23 23:47 Drug: Acetaminophen PO 650 mg PO once Route: PO; [facility] 07/24 00:46 Follow up: Response: No adverse reaction; Temperature is decreased; Pain is increased kc6 01:33 Drug: levofloxacin IVPB 500 mg 100 ml IVPB once over 60 mins {Note: 750mg IV per MD.} kc6 Volume: 100 ml; Route: IVPB; Infused Over: 60 mins; Site: right antecubital; 02:58 Follow up: Response: No adverse reaction; IV Status: Completed infusion; IV Intake: kc6 100ml 01:36 Drug: Ibuprofen PO 800 mg PO once Route: PO; kc6 02:30 Follow up: Response: No adverse reaction; Temperature is decreased kc6 Medication: 03:15 VIS not applicable for this client. kc6 Intake: 02:58 IV: 100ml; Total: 100ml. kc6 Outcome: 02:27 Decision to Hospitalize by Provider. rn 03:15 Admitted to Med/surg accompanied by tech, via wheelchair, room 403, with oxygen, with kc6 chart, 03:15 Condition: good 03:15 Instructed on the need for admit, 03:15 Patient left the ED. kc6 Signatures: Dispatcher [employer] EDMS Jack Brooks MD MD rn Gomez, Alice ag3 Nydia Michaels RN RN kc6 Anette Staples rv1 Corrections: (The following items were deleted from the chart) 02 23:29 23:29 PMHx: None; kc6 kc6 07/24 00:03 02 23:30 Patient maintains SpO2 saturation greater than 95% on room air. kc6 kc6 07/24 03:07 01:33 levofloxacin IVPB 500 mg 100 ml IVPB in right antecubital over 60 mins kc6 kc6
--- NOTE | 2023-07-24 02:28 | EDPHYS ---
Physician Documentation [facility] Name: Kayla Hernandez Age: 73 yrs Sex: Female : 1950 Arrival Date: 07/23/2023 Time: 23:17 Bed 13 Private MD: ED Physician Jack Brooks HPI: 07/23 23:34 This 73 yrs old Black Female presents to ER via Ambulatory with complaints of Cough, rn BODY ACHES. 23:34 The patient or guardian reports cough, that is intermittent, described as moderate, rn with productive sputum. Onset: The symptoms/episode began/occurred 4 day(s) ago. Severity of symptoms: At their worst the symptoms were moderate, in the emergency department the symptoms are unchanged. Modifying factors: The symptoms are alleviated by nothing, the symptoms are aggravated by nothing. Associated signs and symptoms: Pertinent positives: fever, rhinorrhea, Pertinent negatives: chest pain, diarrhea, vomiting. The patient has not experienced similar symptoms in the past. Patient reports cough, subjective fever, body aches, shortness of breath with ambulation. Cough started 4 days ago. Denies chronic lung problems. No chest pain. Cough productive of sputum, negative for hemoptysis. No history of cardiac problems or congestive heart failure. No leg swelling. No history of DVT or PE.. Historical: - Allergies: 23:29 PENICILLINS; kc6 - PMHx: 23:29 Hypertensive disorder; kc6 - PSHx: 23:29 tubal ligation; kc6 - Immunization history:: Adult Immunizations up to date. - Social history:: Smoking status: Patient denies any tobacco usage or history of. - Family history:: not pertinent. - Hospitalizations: : No recent hospitalization is reported. ROS: 23:34 Constitutional: Positive for subjective fever and myalgias Eyes: Negative for injury, rn pain, redness, and discharge, Neck: Negative for injury, pain, and swelling, Cardiovascular: Negative for chest pain, palpitations, and edema, Respiratory: Positive for cough and shortness of breath Abdomen/GI: Positive for decreased appetite, negative for abdominal pain or vomiting/diarrhea MS/Extremity: Negative for injury and deformity, Skin: Negative for injury, rash, and discoloration, Neuro: Positive for generalized weakness Exam: 23:34 Constitutional: This is a well developed, well nourished patient who is awake, alert, rn mild tachypnea Head/Face: Normocephalic, atraumatic. ENT: Dry mucous membranes. No stridor Cardiovascular: Tachycardic, regular. Respiratory: Mild tachypnea, crackles throughout, no retractions Abdomen/GI: Soft, nontender MS/ Extremity: Pulses equal, no cyanosis. Neurovascular intact. Full, normal range of motion. Equal circumference. No edema of lower extremities Neuro: Awake and alert, GCS 15, oriented to person, place, time, and situation. 23:46 ECG was reviewed by the Attending Physician. rn Vital Signs: 23:28 BP 189 / 80; Pulse 99; Resp 20 S; Pulse Ox 93% on R/A; Weight 74.84 kg (R); Height 4 kc6 ft. 11 in. (R); Pain 10/10; 07/24 00:01 Temp 103.2; rn 00:05 BP 163 / 64; kc6 00:46 BP 150 / 61; Pulse 92; Temp 101.5; Pulse Ox 98% on 2 lpm NC; rv1 01:33 Temp 101.1(O); kc6 01:47 BP 145 / 55; Pulse 90; Resp 19 S; Pulse Ox 99% on 2 lpm NC; kc6 02:29 BP 126 / 56; Pulse 83; Resp 16 S; Temp 99.8(O); Pulse Ox 99% on 2 lpm NC; kc6 07/23 23:28 Body Mass Index 33.33 (74.84 kg, 149.86 cm) [facility] 07/23 23:28 Pain Scale: Adult [facility] MDM: 07/23 23:22 Patient medically screened. rn 07/24 01:06 ED course: Patient reports history of anemia. Labs today consistent with her anemia. rn Denies any gastrointestinal bleeding. CT ordered for better visualization as patient with cough, back pain, 103 fever, and tachypnea present with a clear chest x-ray.. 02:25 Differential Diagnosis: Bronchitis Influenza Upper Respiratory Infection Viral Syndrome rn Pneumonia. Data reviewed: vital signs, nurses notes, lab test result(s), radiologic studies, CT scan, plain films, and as a result, I will admit patient. Consideration of Admission/Observation Patient was admitted/placed on observation. Escalation of care including admission/observation considered. Counseling: I had a detailed discussion with the patient and/or guardian regarding the historical points, exam findings, and any diagnostic results supporting the discharge/admit diagnosis, lab results, radiology results, the need for further work-up and treatment in the hospital. 07/23 23:23 Order name: SARS RAPID; Complete Time: 00:17 rn 07/23 23:23 Order name: Flu; Complete Time: 00:17 rn 07/23 23:34 Order name: Blood Culture Adult (2) rn 07/23 23:34 Order name: CBC with Diff; Complete Time: 02:08 rn 07/23 23:34 Order name: CMP; Complete Time: 01:02 rn 07/23 23:34 Order name: Lactate w/ 2H reflex if indic.; Complete Time: 00:49 rn 07/23 23:34 Order name: Protime (+inr); Complete Time: 00:49 rn 07/23 23:34 Order name: Ptt, Activated; Complete Time: 00:49 rn 07/23 23:34 Order name: BNP; Complete Time: 01:02 rn 07/24 00:54 Order name: CBC Smear Scan; Complete Time: 02:08 EDMS 07/24 02:45 Order name: Basic Metabolic Panel EDMS 07/24 02:45 Order name: Basic Metabolic Panel EDMS 07/24 02:45 Order name: Basic Metabolic Panel EDMS 07/24 02:45 Order name: Basic Metabolic Panel EDMS 07/24 02:45 Order name: Basic Metabolic Panel EDMS 07/24 02:45 Order name: CBC with Automated Diff EDMS 07/24 02:45 Order name: CBC with Automated Diff EDMS 07/24 02:45 Order name: CBC with Automated Diff EDMS 07/24 02:45 Order name: CBC with Automated Diff EDMS 07/24 02:45 Order name: CBC with Automated Diff EDMS 07/24 02:45 Order name: Sputum Culture EDMS 07/23 23:22 Order name: XRAY Chest (1 view) rn 07/24 01:03 Order name: CT Chest, Abdomen, Pelvis - W/Contrast rn 07/23 23:34 Order name: EKG; Complete Time: 23:35 rn 07/23 23:34 Order name: Accucheck; Complete Time: 00:02 rn 07/23 23:34 Order name: Cardiac monitoring; Complete Time: 23:47 rn 07/23 23:34 Order name: EKG - Nurse/Tech; Complete Time: 23:47 rn 07/23 23:34 Order name: IV Saline Lock - Large Bore; Complete Time: 00:02 rn 07/23 23:34 Order name: Labs collected and sent; Complete Time: 00:02 rn 07/23 23:34 Order name: O2 Per Protocol; Complete Time: 23:35 rn 07/23 23:34 Order name: O2 Sat Monitoring; Complete Time: 23:35 rn 07/23 23:34 Order name: Vital Signs; Complete Time: 23:35 rn EC/11 23:46 Rate is 100 beats/min. Rhythm is regular. QRS Nolan is Normal. LA interval is normal. rn QRS interval is normal. QT interval is normal. No Q waves. T waves are Normal. No ST changes noted. Clinical impression: NSR w/ Non-specific ST/T Changes. Interpreted by me. Reviewed by me. Administered Medications: 23:47 Drug: Acetaminophen PO 650 mg PO once Route: PO; kc6 07/24 00:46 Follow up: Response: No adverse reaction; Temperature is decreased; Pain is increased kc6 01:33 Drug: levofloxacin IVPB 500 mg 100 ml IVPB once over 60 mins {Note: 750mg IV per MD.} kc6 Volume: 100 ml; Route: IVPB; Infused Over: 60 mins; Site: right antecubital; 02:58 Follow up: Response: No adverse reaction; IV Status: Completed infusion; IV Intake: kc6 100ml 01:36 Drug: Ibuprofen PO 800 mg PO once Route: PO; kc6 02:30 Follow up: Response: No adverse reaction; Temperature is decreased kc6 Disposition Summary: 07/24/23 02:27 Hospitalization Ordered Notes: Hospitalization Status: Inpatient Admission rn Provider: Angelo Melgar rn Location: Telemetry/MedSurg (Inpatient) rn Condition: Stable rn Problem: new rn Symptoms: are unchanged rn Bed/Room Type: Standard rn Room Assignment: 403(07/24/23 02:53) kmf Diagnosis - Pneumonia, unspecified organism rn - Dyspnea, unspecified rn - Hypoxemia rn Forms: - Medication Reconciliation Form rn - SBAR form rn - Leadership Thank You Letter rn Signatures: Dispatcher [employer] Jack Myers MD MD rn Campbell, Kaitlyn, RN RN kc6 Madonna Donovan Corrections: (The following items were deleted from the chart) 07/23 23:29 23:29 PMHx: None; kc6 kc6 07/24 02:53 02:27 cornelius jim
[2023-07-24] MEDS ORDERED: ONDANSETRON 4 MG/2 ML VIAL IV PRN (02:38)
[2023-07-24] MEDS ORDERED: ALBUTEROL 2.5 MG/3 ML NEB SOL NEB PRN (02:38)
--- NOTE | 2023-07-24 02:45 | P.HP ---
Certification for Inpatient Patient admitted to: Inpatient With expected LOS: >2 Midnights Practitioner: I am a practitioner with admitting privileges, knowledge of patient current condition, hospital course, and medical plan of care. Services: Services provided to patient in accordance with Admission requirements found in Title 42 Section 412.3 of the Code of Federal Regulations Patient History Date of Service: 07/24/23 Reason for admission: Left lower lobe pneumonia, leukopenia, anemia History of Present Illness: 73-year-old female patient with medical history significant for hypertension who was evaluated for episode of cough and general body ache. She reported cough, general body ache and lethargy. She also has some mild fever but she had no overt episode of diarrhea, nausea, vomiting. Because of her presentation she had lab done and is chest x-ray/CT chest abdomen pelvis done. Lab reviewed low white cell of 1.7K, anemia with hemoglobin 8.1 and normal platelet count. Imaging study revealed left lower lobe consolidation depicting pneumonia and multiple lytic lesions with suggestions for myelodysplastic syndrome. She was started on antibiotic therapy with Levaquin and she was admitted for inpatient care workup. Allergies Penicillins Allergy (Verified 07/24/23 02:53) Itching/Hives/Rash Home Medications: Pantoprazole Sodium [Protonix] 40 mg PO DAILY 07/24/23 atenoloL [Atenolol] 100 mg PO DAILY 07/24/23 lisinopriL [Lisinopril] 30 mg PO DAILY 07/24/23 Review of Systems General: Weakness, Malaise Eyes: Unremarkable ENT: Unremarkable Respiratory: Cough, As per HPI Cardiovascular: Unremarkable Gastrointestinal: Unremarkable Genitourinary: Unremarkable Musculoskeletal: Unremarkable Integumentary: Unremarkable Neurological: Unremarkable Lymphatics: Unremarkable Physical Examination - Studies Laboratory Data (last 24 hrs) 07/23/23 07/23/23 07/23/23 23:53 23:53 23:53 WBC 1.70 L Hgb 8.1 L Hct 24.9 L Plt Count 134 L PT 15.3 H INR 1.40 APTT 25.3 Sodium 136 Potassium 3.3 L BUN 11 Creatinine 1.14 H Glucose 127 H Total Bilirubin 0.6 AST 32 ALT 27 Alkaline Phosphatase 55 Microbiology Data (last 24 hrs): 07/23/23 23:33 Nasopharnyx Influenza Type A Antigen Screen - Final 07/23/23 23:33 Nasopharnyx Influenza Type B Antigen Screen - Final Assessment and Plan - Plan Left lower lobe pneumonia: Imaging and clinical presentation are concerning. Will obtain sputum culture, monitor blood culture for adjustment of antibiotic therapy. Continue empiric antibiotic therapy with Levaquin. Follow-up clinical course and continue breathing treatment with as needed Duo Neb. Continue supplemental oxygen if needed. Hypertension: Monitor vital signs per unit protocol and continue to hypertensive medications per Leukopenia: White cell is low at 1.7K, will monitor and start neutropenic precaution if needed. Anemia: Hemoglobin is 8.1. Will monitor clinical status closely. Will obtain peripheral smear for evaluation for possible hematologic malignancy. Hypokalemia: Potassium is low at 3.3. We will replete and follow levels. Prophylaxis: Lovenox for DVT prophylaxis CODE STATUS: Full code Disposition: We will treat her multiple medical issues and she will be discharged once deemed clinically stable. - Advance Directives Does patient have a Living Will: No Does patient have a Durable POA for Healthcare: No
[2023-07-24] MEDS: Levofloxacin 750mg IV 750 MG/150 ML BAG IV ONE (03:00)
[2023-07-24] MEDS: POTASSIUM CL SA 10 MEQ TAB PO ONE (03:08)
[2023-07-24] MEDS: NA CHLORIDE 0.9% 1,000 ML IV SCH (03:08)
[2023-07-24 04:15] VITALS: BMI 32.7
[2023-07-24] MEDS: ENOXAPARIN 40 MG/0.4 ML SQ SCH (09:00)
--- NOTE | 2023-07-24 11:13 | RAD REPORT ---
EXAM DESCRIPTION: CT - Chest Abdomen Pelvis W Cont - 07/24/2023 6:31 am CLINICAL HISTORY: Fever, cough, back pain COMPARISON: None. TECHNIQUE: CT CHEST ABDOMEN PELVIS WITH IV CONTRAST on 07/24/2023 1:03 AM SENIOR SYSTEMS PROGRAMMER. MIPS reconstructions w ere generated. This exam was performed according to our departmental dose-optimization program, which includes autom ated exposure control, adjustment of the mA and/or kV according to patient size and/or use of iterati ve reconstruction technique. FINDINGS: Vascular: Thoracic aorta is normal in course and caliber without aneurysm or dissection. P ulmonary arteries are adequately opacified without acute or chronic filling defects. Abdominal aorta is normal in course and caliber without aneurysm. Pelvic arteries are patent without aneurysm or occl usion. Chest: The heart is mildly enlarged. There is a small pericardial effusion. Intrathoracic lymph nodes are not enlarged. There is no pleural effusion, pleural thickening or pneumothorax. Central airways are patent. There i s minimal airspace disease in the right lower lobe. There is mild airspace disease in the left upper lobe with dense consolidation of the left lower lobe. Abdomen: The liver is normal in appearance. There is no biliary dilatation. Gallbladder is normal in appearance. The pancreas and spleen are normal in appearance. Adrenal glands are normal. There is a s mall cyst mid pole left renal cyst measuring 3.6 cm. There is no free air. There is no retroperitoneal adenopathy. Pelvis: There is mild diverticulosis of the left colon. Urinary bladder is unremarkable. There is no free fluid. The uterus is normal in size. Appendix is normal. Skeleton: There is an extensive lytic lesion involving the lateral left iliac bone. There is lytic re placement of much of the L5 vertebral body. There is minimal involvement of the lower right side of t he L4 vertebral body. There are small lytic lesions in the T9 and T10 vertebral bodies as well. IMPRESSION: Bilateral, mostly left lower lobe pneumonia. 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 Left Bosniak I benign renal cyst measuring 3.6 cm. No follow-up imaging is recommended. JACR 2017; [id number], Management of the Incidental Renal Mass on CT, [employer] 2020; [id number], B osniak Classification of Cystic Renal Masses, Version 2019. Electronically signed by: Gee Salazar MD 07/24/2023 02:07 AM SENIOR SYSTEMS PROGRAMMER Due to temporary technical issues with the PACS/Fluency reporting system, reports are being signed by the in house radiologist without review as a courtesy to ensure prompt reporting. The interpreting r adiologist is fully responsible for the content of the report.
--- NOTE | 2023-07-24 11:28 | RAD REPORT ---
EXAM DESCRIPTION: RAD - Chest Single View - 07/23/2023 11:53 pm CLINICAL HISTORY: The patient is 73 years old and is Female; COUGH TECHNIQUE: Frontal view of the chest. COMPARISON: No relevant prior studies available. FINDINGS: LUNGS: Unremarkable. No consolidation. PLEURAL SPACE: Unremarkable. No pneumothorax. HEART: The cardiac silhouette is enlarged. MEDIASTINUM: Unremarkable. Normal mediastinal contour. BONES/JOINTS: Unremarkable. No acute fracture. UPPER ABDOMEN: Unremarkable as visualized. IMPRESSION: Cardiomegaly without failure. Electronically signed by: Aurelia Riddle MD 07/24/2023 12:09 AM NON DESTRUCTIVE TESTING TECHNICIAN Due to temporary technical issues with the PACS/Fluency reporting system, reports are being signed by the in house radiologist without review as a courtesy to ensure prompt reporting. The interpreting r adiologist is fully responsible for the content of the report.
[2023-07-24] MEDS: CEFEPIME 2 GM in NA CHLORIDE 0.9% 100 ML IV SCH (12:21)
[2023-07-24] MEDS: VANCOMYCIN 1.5 GM in NA CHLORIDE 0.9% 500 ML IVPB ONE (12:21)
[2023-07-24] MEDS: ACETAMINOPHEN 325 MG TABLET PO PRN (12:24)
--- NOTE | 2023-07-24 13:33 | EKG ---
Test Date: 2023-07-23 Test Time: 23:43:22 Power Hammer Operator: MIKAL MEASUREMENT RESULTS: Intervals: Rate: 100 NJ: 164 QRSD: 74 QT: 318 QTc: 410 [place]: P: 69 NJ: 164 QRS: 52 T: 31 INTERPRETIVE STATEMENTS: Sinus rhythm with occasional premature ventricular complexes Nonspecific T wave abnormality Abnormal ECG Compared to ECG 12/13/2010 06:21:25 Ventricular premature complex(es) now present T-wave abnormality now present Sinus bradycardia no longer present Electronically Signed On 07-24-23 13:32:11 GATEMAN by Kwame Ramírez
--- NOTE | 2023-07-24 14:42 | P.PN ---
Date of Service: 07/24/23 Significant fever earlier this morning. Patient reports nonproductive cough. Currently maintained on oxygen by nasal cannula. CT scan report reviewed and noted lytic lesions throughout the thoracolumbar spine. Pancytopenia with absolute neutropenia Noted Total protein-Albumin gap. Findings highly suspicious for multiple myeloma. Obtain SPEP, UPEP, immunofixation Bence-Singh protein Follow-up outpatient with hematology. Reverse isolation Aggressive antibiotics-IV cefepime. Follow cultures Supportive measures.
[2023-07-24] MEDS: IPRATROPIUM BROM 0.5MG/2.5ML NEB PRN (21:30)
[2023-07-24] MEDS: ALBUTEROL 2.5 MG/3 ML NEB SOL NEB PRN (21:30)
[2023-07-25 06:28] LABS: Hematocrit 20.5 % (36.0-45.0); MCV 87.6 fL (80-100); Platelets 120 thou/uL (152-406); RBC Red Blood Cell Count 2.35 M/uL (3.86-4.86)
[2023-07-25 06:54] LABS: Magnesium 1.8 mg/dL (1.6-2.4); Phosphorus 2.4 mg/dL (2.5-4.9)
[2023-07-25] MEDS: PANTOPRAZOLE 40MG TABLET PO SCH (07:45)
[2023-07-25] MEDS: lisinopriL 20 MG TAB PO SCH (07:46)
--- NOTE | 2023-07-25 08:34 | P.PN ---
Date of Service: 07/25/23 Subjective: productive cough continues 103.2 fever yesterday morning feels lower back pain has improved somewhat no new/worsening symptoms ROS: 10 point ROS as noted above, otherwise negative Physical Exam: GEN: Alert, oriented, NAD at rest HEENT: Normal conjunctiva, sclera anicteric, CV: Regular rate and rhythm, no edema Pulm: Nonlabored respirations on 2L NC, diminished at bases b/l, productive cough ABD: soft, nontender, nondistended Neuro: Normal speech, normal affect Problem List: Bilateral Pneumonia, L > R Acute on chronic anemia, Iron deficiency anemia Leukopenia with absolute neutropenia and left shift Thrombocytopenia 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 Multiple lytic metastatic lesions thoracolumbar spine / left pelvis. Left bosniak I benign renal cyst (3.6 cm) Blood cx (07/23): NGTD Sputum cx (07/24): pending continue empiric IV cefepime (07/24-) IV levaquin / vanc added (07/25) ID consulted continue duonebs wean oxygen as tolerated - currently on 2L NC Pulm consulted Acute on chronic anemia, Iron deficiency anemia Leukopenia with absolute neutropenia and left shift Thrombocytopenia hgb 8.1 -> 6.7 (07/25) no bleeding 1 uPRBC ordered (07/25) repeat H&H post transfusion iron studies this hospitalization consistent with iron deficiency anemia (07/25) pt states she has been on oral iron every other day for a few months now peripheral blood smear (07/25): leukopenia with absolute neutropenia and left shit. normocytic, normochromic anemia with mild anisopoikilocytosis. 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 high concern for multiple myeloma check SPEP, UPEP, immunofixation, Bence-Singh protein Will need to follow up with hematology as outpatient Hypertension confirm home meds, restart as appropriate VTE: Lovenox Code: Full Dispo: ~2-3 days Pending breathing improves, off oxygen, cx results
[2023-07-25 08:38] LABS: Anisocytosis 1+; Blood Morphology Comment NOTED (NOT SEEN); Platelet Estimate ADEQ; White Blood Cell Scan OK (OK)
[2023-07-25 08:39] LABS: Rouleau NOTED
[2023-07-25] MEDS: MAGNESIUM SULFATE 1 gm IVPB 1 GM/100 ML BAG IV ONE (09:07)
[2023-07-25] MEDS: Levofloxacin 750mg IV 750 MG/150 ML BAG IV SCH (09:07)
[2023-07-25] MEDS: POTASS/SODIUM PHOSPHATE 1 PKT POWD.PACK PO SCH (09:08)
--- NOTE | 2023-07-25 09:34 | P.CNS ---
Date of Consult: 07/25/23 Reason for Consult: pneumonia, neutropenic fever Requesting Physician: Vikash Brooks Chief Complaint: Left lower lobe pneumonia, leukopenia, anemia History of Present Illness: Patient is a 73 year old female with a medical history of hypertension and anemia who presented to the ED with complaints of cough, fever and generalized body aches. CT chest revealing "Bilateral, mostly left lower lobe pneumonia. 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 Left Bosniak I benign renal cyst measuring 3.6 cm." Allergies Penicillins Allergy (Verified 07/24/23 02:53) Itching/Hives/Rash Home medications list reviewed: Yes Home Medications: Pantoprazole Sodium [Protonix] 40 mg PO DAILY 07/24/23 atenoloL [Atenolol] 100 mg PO DAILY 07/24/23 lisinopriL [Lisinopril] 30 mg PO DAILY 07/24/23 - Past Medical/Surgical History Diabetic: No -: HTN -: Tubal Ligation - Social History Alcohol use: No CD- Drugs: No Caffeine use: Yes Place of Residence: Home Review of Systems General: Weakness Respiratory: Cough Physical Examination Temp Pulse Resp BP Pulse Ox 97.6 F 67 16 176/75 H 100 07/25/23 08:00 07/25/23 08:00 07/25/23 08:00 07/25/23 08:00 07/25/23 08:00 General: Alert, In no apparent distress, Oriented x3 HEENT: Atraumatic, Normocephalic Neck: Supple Respiratory: Normal air movement, Diminished, Other (on 2L nasal cannula) Cardiovascular: No edema, Regular rate/rhythm Gastrointestinal: Normal bowel sounds, Soft and benign Integumentary: No rashes Laboratory Data - Reviewed Microbiology Data - Reviewed Imagings Data: - Reviewed Conclusions/Impression: Problem List Bilateral Pneumonia Iron deficiency anemia Leukopenia Thrombocytopenia Hypertension Bilateral Pneumonia - CT abdomen pelvis w contrast 07/24: "Bilateral, mostly left lower lobe pneumonia. 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 Left Bosniak I benign renal cyst measuring 3.6 cm. No follow- up imaging is recommended." - Currently on Cefepime and Vancomycin - pulmonology also following 48 hour tmax 103.2 Peripheral blood smear 07/25: " Leukopenia with absolute neutropenia and left shift. Normocytic, normochromic anemia with mild anisopoikilocytosis. Thrombocytopenia" Recommendations - Pneumonia: Continue antibiotic therapy for 5-7 days. Currently on Cefepime and Vancomycin. Consider switch to Levaquin PO to complete remainder of antibiotic course. - Follow up with sputum culture results. Will adjust antibiotics as appropriate. - Wean off supplemental O2 as tolerated - Monitor CBC and fever trends - Continue supportive care Case discussed with Alley Malik
[2023-07-25] MEDS: NA CHLORIDE 0.9% 250 ML IV SCH (10:36)
--- NOTE | 2023-07-25 12:55 | P.CNS ---
Date of Consult: 07/25/23 Chief Complaint: Left lower lobe pneumonia, leukopenia, anemia Allergies Penicillins Allergy (Verified 07/24/23 02:53) Itching/Hives/Rash Home Medications: Pantoprazole Sodium [Protonix] 40 mg PO DAILY 07/24/23 atenoloL [Atenolol] 100 mg PO DAILY 07/24/23 lisinopriL [Lisinopril] 30 mg PO DAILY 07/24/23 - Past Medical/Surgical History Diabetic: No -: HTN -: Tubal Ligation - Social History Alcohol use: No CD- Drugs: No Caffeine use: Yes Place of Residence: Home Physical Examination Temp Pulse Resp BP Pulse Ox 97.5 F 64 16 155/68 H 100 07/25/23 12:00 07/25/23 12:00 07/25/23 12:00 07/25/23 12:00 07/25/23 12:00
[2023-07-25] MEDS: BENZONATATE 100 MG CAP PO PRN (13:45)
[2023-07-25] MEDS: VANCOMYCIN 1.25 GM in NA CHLORIDE 0.9% 250 ML IVPB SCH (13:53)
[2023-07-25 16:02] LABS: Hematocrit 24.3 % (36.0-45.0)
--- NOTE | 2023-07-25 16:53 | P.CNS ---
Date of Consult: 07/25/23 Reason for Consult: LLL penumonia Chief Complaint: Left lower lobe pneumonia, leukopenia, anemia History of Present Illness: Age 73 AW cough and body aches for past 4 days. Seeing Summer Ann for anemia, LLL penumonia, neutropenia and Anemia s Allergies Penicillins Allergy (Verified 07/24/23 02:53) Itching/Hives/Rash Home Medications: Pantoprazole Sodium [Protonix] 40 mg PO DAILY 07/24/23 atenoloL [Atenolol] 100 mg PO DAILY 07/24/23 lisinopriL [Lisinopril] 30 mg PO DAILY 07/24/23 - Past Medical/Surgical History Diabetic: No -: HTN -: Tubal Ligation - Social History Alcohol use: No CD- Drugs: No Caffeine use: Yes Place of Residence: Home Review of Systems 10-point ROS is otherwise unremarkable General: Weakness, As per HPI Physical Examination Temp Pulse Resp BP Pulse Ox 97.5 F 64 16 155/68 H 100 07/25/23 12:00 07/25/23 12:00 07/25/23 12:00 07/25/23 12:00 07/25/23 12:00 General: Alert, In no apparent distress, Oriented x3 HEENT: Atraumatic Neck: Supple Respiratory: Clear to auscultation bilaterally Cardiovascular: No edema, Regular rate/rhythm, Normal S1 S2 Gastrointestinal: Normal bowel sounds, Soft and benign - Problems (1) Pneumonia Current Visit: Yes Status: Acute Plan: Age 73 AW cough and body aches. Neutropenia and anemia. Multiple lytic lesion . Likely MMyeloma CT There is an extensive lytic lesion involving the lateral left iliac bone. There is lytic replacement of much of the L5 vertebral body. There is minimal involvement of the lower right side of the L4 vertebral body. There are small lytic lesions in the T9 and T10 vertebral bodies as well. IMPRESSION: Bilateral, mostly left lower lobe pneumonia. 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 Left Bosniak I benign renal cyst measuring 3.6 cm. No follow-up imaging is recommended Labs reviewed. Cultures neg sofar/ DC Cefepime CW levaqin. Not at risk for resistant organisms/ Can DC Vanco. Likely pneomoccal pneumonia Qualifiers: Pneumonia type: due to unspecified organism Laterality: left Lung location: lower lobe of lung Qualified Code(s): J18.9 - Pneumonia, unspecified organism
[2023-07-26] MEDS ORDERED: Levofloxacin 750mg IV 750 MG/150 ML BAG IV SCH (03:00)
[2023-07-26 06:48] LABS: Absolute Lymphocytes (CBC) 1.2 K/uL (0.7-4.9); Hematocrit 23.9 % (36.0-45.0); Lymphocytes % 22.9 % (15.3-44.8); MCV 86.3 fL (80-100); Platelets 128 thou/uL (152-406); RBC Red Blood Cell Count 2.76 M/uL (3.86-4.86)
[2023-07-26] MEDS ORDERED: TRAMADOL HCL 50 MG TAB PO PRN (06:53)
[2023-07-26 07:06] LABS: Magnesium 1.9 mg/dL (1.6-2.4); Phosphorus 3.1 mg/dL (2.5-4.9)
[2023-07-26] MEDS: atenoloL 50 MG TAB PO SCH (07:55)
--- NOTE | 2023-07-26 08:34 | P.PN ---
Date of Service: 07/26/23 Subjective: Feeling a little better Breathing a little more comfortably on 3L NC, 98% SpO2 no new / worsening problems afebrile ROS: 10 point ROS as noted above, otherwise negative Physical Exam: GEN: Alert, oriented, NAD at rest HEENT: Normal conjunctiva, sclera anicteric, CV: Regular rate and rhythm, no edema Pulm: Nonlabored respirations on 3L NC, diminished at bases b/l, productive cough ABD: soft, nontender, nondistended Neuro: Normal speech, normal affect Problem List: Bilateral Pneumonia, L > R Acute on chronic anemia, Iron deficiency anemia Leukopenia with absolute neutropenia and left shift Thrombocytopenia 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 Multiple lytic metastatic lesions thoracolumbar spine / left pelvis. Left bosniak I benign renal cyst (3.6 cm) Blood cx (07/23): NGTD Sputum cx (07/24): pending Previously on IV cefepime (07/24-07/25) and vanc (07/25) now dc'd per pulm. Not at risk for resistant organisms continue empiric IV levaquin (07/25-07/31) deescalate to PO levaquin on discharge. Patient will need to complete 7 days total antibiotics per ID ID and pulm following continue duonebs wean oxygen as tolerated - currently on 3L NC PRN antitussives Acute on chronic anemia, Iron deficiency anemia Leukopenia with absolute neutropenia and left shift Thrombocytopenia hgb 8.3 -> 7.7 (07/26) no bleeding s/p 1 uPRBC (07/25) iron studies this hospitalization consistent with iron deficiency anemia (07/25) pt states she has been on oral iron every other day for a few months now peripheral blood smear (07/25): leukopenia with absolute neutropenia and left shit. normocytic, normochromic anemia with mild anisopoikilocytosis. 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 high concern for multiple myeloma check SPEP, UPEP, immunofixation, Bence-Singh protein Will need to follow up with hematology as outpatient currently has f/u august 29 something for follow up for anemia visit from ~1 week ago Hypertension confirm home meds, restart as appropriate VTE: Lovenox on hold Code: Full Dispo: ~1-2 days Pending breathing improves, off oxygen, cx results
--- NOTE | 2023-07-26 08:57 | P.PN ---
Date of Service: 07/26/23 Chief Complaint: Left lower lobe pneumonia, leukopenia, anemia Subjective: Improving. + cough In no apparent distress. No acute events overnight. Physical Examination Temp Pulse Resp BP Pulse Ox 97.4 F 78 18 180/84 H 100 07/26/23 04:00 07/26/23 04:00 07/26/23 04:00 07/26/23 04:00 07/26/23 04:00 General: Alert, In no apparent distress, Oriented x3 HEENT: Atraumatic, Normocephalic Respiratory: Normal air movement, Diminished. Unlabored respirations on 2L nasal cannula. Cardiovascular: regular rate and rhythm. No edema. Gastrointestinal: Normal bowel sounds, Soft and benign Integumentary: No rashes Laboratory Data - Reviewed Microbiology Data - Reviewed Imagings Data: - Reviewed Assessment and Plan Problem List Bilateral Pneumonia Iron deficiency anemia Leukopenia Thrombocytopenia Hypertension Bilateral Pneumonia - CT abdomen pelvis w contrast 07/24: "Bilateral, mostly left lower lobe pneumonia. 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 Left Bosniak I benign renal cyst measuring 3.6 cm. No follow- up imaging is recommended." - Cefepime and Vancomycin switched to Levaquin 07/25. - Negative covid. negative influenza. - Sputum culture ordered, pending - pulmonology also following Afebrile 48 hours. WBC 5.1 Peripheral blood smear 07/25: " Leukopenia with absolute neutropenia and left shift. Normocytic, normochromic anemia with mild anisopoikilocytosis. Thrombocytopenia" Patient sees computer applications engineer as outpatient. Recommendations - Pneumonia: Continue antibiotic therapy for 7 days (07/25-07/31). On Levaquin IV, switch to PO upon discharge. - nebulizer treatments - Wean off supplemental O2 as tolerated - Monitor CBC and fever trends - Continue supportive care Case discussed with Alley Malik
--- NOTE | 2023-07-26 12:25 | P.PN ---
Subjective Date of Service: 07/26/23 Chief Complaint: Left lower lobe pneumonia, leukopenia, anemia Subjective: Improving (Patient is improving doing better) Review of Systems General: Weakness Respiratory: Shortness of Breath Physical Examination - Vital Signs Temperature: 99.0 F Blood Pressure: 174/76 Pulse: 75 Respirations: 17 Pulse Ox (%): 97 - Physical Exam General: Alert, Oriented x3 Respiratory: Clear to auscultation bilaterally Cardiovascular: No edema, Regular rate/rhythm Assessment And Plan - Current Problems (Diagnosis) (1) Pneumonia Current Visit: Yes Status: Acute Plan: Patient is 73 years of age admitted with pneumonia left lower lobe I suspect that she has multiple myeloma due to lytic lesion labs chemistries all reviewed mild pancytopenia cultures negative sputum cultures are pending plan to discharge home on levofloxacin for a week in total blood pressure is mildly elevated immunoelectrophoresis is pending Qualifiers: Pneumonia type: due to unspecified organism Laterality: left Lung location: lower lobe of lung Qualified Code(s): J18.9 - Pneumonia, unspecified organism
[2023-07-26 16:37] LABS: Albumin, (SPE) 2.4 g/dL (3.8-4.8); Alpha-1-Globulins 0.5 g/dL (0.2-0.3); Alpha-2-Globulins 1.1 g/dL (0.5-0.9); Gamma Globulins 2.1 g/dL (0.8-1.7); INTERPRETATION REPORT
[2023-07-26] MEDS: HYDRALAZINE HCL 20 MG/ML VIAL IV PRN (17:52)
[2023-07-26 20:35] LABS: KAPPA LIGHT CHAIN, FREE SERUM 264.1 mg/L (3.3-19.4)
[2023-07-27 06:15] LABS: Absolute Lymphocytes (CBC) 1.3 K/uL (0.7-4.9); Hematocrit 24.1 % (36.0-45.0); Lymphocytes % 22.8 % (15.3-44.8); MCV 86.5 fL (80-100); MPV 8.1 fL (7.6-11.3); Platelets 127 thou/uL (152-406); RBC Red Blood Cell Count 2.79 M/uL (3.86-4.86)
[2023-07-27 06:30] LABS: Magnesium 1.9 mg/dL (1.6-2.4); Potassium 4.1 mEq/L (3.5-5.1)
--- NOTE | 2023-07-27 07:39 | RAD REPORT ---
EXAM DESCRIPTION: Pily Single View07/27/2023 7:18 am CLINICAL HISTORY: Hypoxia COMPARISON: July 23, 2023 FINDINGS: The small left lower lobe consolidation is mildly improved Minimal right lung opacities may have resolved Heart remains moderately enlarged IMPRESSION: Small lower lobe consolidation mildly improved
--- NOTE | 2023-07-27 08:53 | P.PN ---
Date of Service: 07/27/23 Chief Complaint: Left lower lobe pneumonia, leukopenia, anemia Subjective: Patient eating breakfast in bed. Continues to improve. No acute events overnight. Reports improvement in cough. No new or worsening complaints at this time. Physical Examination Temp Pulse Resp BP Pulse Ox 97.7 F 78 18 183/85 H 100 07/27/23 04:00 07/27/23 06:38 07/27/23 04:00 07/27/23 06:38 07/27/23 04:00 General: Alert, In no apparent distress, Oriented x3 HEENT: Atraumatic, Normocephalic Respiratory: Normal air movement, Diminished at bases. Unlabored respirations on room air. Cardiovascular: regular rate and rhythm. No edema. Gastrointestinal: Normal bowel sounds, Soft and benign. Integumentary: No rashes. Skin warm and dry. Laboratory Data - Reviewed Microbiology Data - Reviewed Imagings Data: - Reviewed Medications List: Acetaminophen (Acetaminophen 325 Mg Tablet) 650 mg PO Q4HP PRN PRN Reason: Pain scale 2-4 (Mild) Last Admin: 07/24/23 23:09 Dose: 650 mg Albuterol Sulfate (Albuterol 2.5 Mg/3 Ml Neb Joselin) 2.5 mg NEB [id number] PRN PRN Reason: SHORTNESS OF BREATH Last Admin: 07/26/23 20:22 Dose: 2.5 mg Atenolol (Atenolol 50 Mg Tab) 100 mg PO [id number] [facility] Last Admin: 07/27/23 06:38 Dose: 100 mg Benzonatate (Benzonatate 100 Mg Cap) 100 mg PO Q6H PRN PRN Reason: COUGH Last Admin: 07/26/23 07:55 Dose: 100 mg Enoxaparin Sodium (Enoxaparin 40 Mg/0.4 Ml) 40 mg SQ DAILY [facility] Last Admin: 07/26/23 07:56 Dose: Not Given Hydralazine HCl (Hydralazine Hcl 20 Mg/Ml Vial) 10 mg IV Q6HP PRN PRN Reason: FOR SBP>160 OR DBP>100 [facility] Last Admin: 07/26/23 17:52 Dose: 10 mg Sodium Chloride (Sodium Chloride) 250 mls @ 0 mls/hr IV .Q0M [facility] Last Admin: 07/25/23 10:36 Dose: 250 mls Levofloxacin/Dextrose (Levaquin 750 Mg/150 Ml Ivpb (Premix)) 750 mg in 150 mls @ 100 mls/hr IV DAILY [facility]; Protocol Last Admin: 07/26/23 07:56 Dose: 150 mls Ipratropium [place] (Ipratropium Brom 0.5mg/2.5ml) 0.5 mg NEB [id number] PRN PRN Reason: SHORTNESS OF BREATH Last Admin: 07/26/23 20:22 Dose: 0.5 mg Lisinopril (Lisinopril 20 Mg Tab) 30 mg PO DAILY [facility] Last Admin: 07/26/23 07:56 Dose: 30 mg Ondansetron HCl (Ondansetron 4 Mg/2 Ml Vial) 4 mg IV Q6HP PRN PRN Reason: NAUSEA / VOMITING Pantoprazole Sodium (Pantoprazole 40mg Tablet) 40 mg PO DAILY [facility]; Protocol Last Admin: 07/26/23 07:55 Dose: 40 mg Tramadol HCl (Tramadol Hcl 50 Mg Tab) 50 mg PO Q6H PRN PRN Reason: Pain scale 5-7 (Moderate) Assessment and Plan Problem List Bilateral Pneumonia Iron deficiency anemia Leukopenia Thrombocytopenia Hypertension Bilateral Pneumonia - CT abdomen pelvis w contrast 07/24: "Bilateral, mostly left lower lobe pneumonia. 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 Left Bosniak I benign renal cyst measuring 3.6 cm. No follow- up imaging is recommended." - Cefepime and Vancomycin switched to Levaquin 07/25. - Negative covid. negative influenza. - Sputum culture ordered, pending - pulmonology also following Afebrile >48 hours. WBC 5.1 Peripheral blood smear 07/25: " Leukopenia with absolute neutropenia and left shift. Normocytic, normochromic anemia with mild anisopoikilocytosis. Thrombocytopenia" - Patient sees pole climber as outpatient. Recommendations - Pneumonia: Continue antibiotic therapy for 7 days (07/25-07/31). On Levaquin IV, switch to PO upon discharge. - nebulizer treatments - Monitor CBC and fever trends - Continue supportive care Case discussed with Alley Malik
--- NOTE | 2023-07-27 10:46 | P.PN ---
Date of Service: 07/27/23 Subjective: Feeling better today. Breathing more comfortably off oxygen this morning, SPO2 97-99% no new / worsening problems hgb stable last 24 hours afebrile ROS: 10 point ROS as noted above, otherwise negative Physical Exam: GEN: Alert, oriented, NAD at rest HEENT: Normal conjunctiva, sclera anicteric, CV: Regular rate and rhythm, no edema Pulm: Nonlabored respirations on room air, diminished at bases b/l, productive cough ABD: soft, nontender, nondistended Neuro: Normal speech, normal affect Problem List: Bilateral Pneumonia, L > R Acute on chronic anemia, Iron deficiency anemia Leukopenia with absolute neutropenia and left shift Thrombocytopenia 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 Multiple lytic metastatic lesions thoracolumbar spine / left pelvis. Left bosniak I benign renal cyst (3.6 cm) Blood cx (07/23): NGTD Sputum cx (07/24): pending Previously on IV cefepime (07/24-07/25) and vanc (07/25) now dc'd per pulm. Not at risk for resistant organisms continue empiric IV levaquin (07/25-07/31) deescalate to PO levaquin on discharge. Patient will need to complete 7 days total antibiotics per ID ID and pulm following continue duonebs off oxygen this morning, SPO2 97-99% PRN antitussives Acute on chronic anemia, Iron deficiency anemia Leukopenia with absolute neutropenia and left shift Thrombocytopenia hgb 7.7 -> 7.9 (07/27) no bleeding s/p 1 uPRBC (07/25) iron studies this hospitalization consistent with iron deficiency anemia (07/25) pt states she has been on oral iron every other day for a few months now peripheral blood smear (07/25): leukopenia with absolute neutropenia and left shit. normocytic, normochromic anemia with mild anisopoikilocytosis. 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 high concern for multiple myeloma check SPEP, UPEP, immunofixation, Bence-Singh protein M-Eran elevated 2.0. Patient updated on findings 07/27. Will need to follow up with hematology as outpatient currently has f/u august 29 something for follow up for anemia visit from ~1 week ago Hypertension confirm home meds, restart as appropriate VTE: Lovenox on hold Code: Full Dispo: Home, ~1 day
[2023-07-27 16:54] VITALS: BP 154/66; TEMP 98.6
[2023-07-27 18:35] VITALS: O2SAT 76
--- NOTE | 2023-07-28 06:44 | P.DS ---
Admission Date: 07/24/23 Discharge Date: 07/27/23 Disposition: ROUTINE DISCHARGE Discharge Condition: GOOD Reason for Admission: Left lower lobe pneumonia, leukopenia, anemia Consultations: ID - Dr. Stark Pulmonology - Dr. Penny Brief History of Present Illness: 73yo F, PMH: hypertension Patient presented to the ED for episode of cough and general body ache. She reported cough, general body ache and lethargy. She also has some mild fever but she had no overt episode of diarrhea, nausea, vomiting. Because of her presentation she had lab done and is chest x-ray/CT chest abdomen pelvis done. Lab reviewed low white cell of 1.7K, anemia with hemoglobin 8.1 and normal platelet count. Imaging study revealed left lower lobe consolidation depicting pneumonia and multiple lytic lesions with suggestions for myelodysplastic syndrome. She was started on antibiotic therapy with Levaquin and she was admitted for inpatient care workup. 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 Patient was found to have Bilateral pneumonia mostly consolidated in LLL seen on CT. Labwork was consistent with pancytopenia / neutropenia on admission. As a result, Pulm and ID were consulted, and received empiric IV cefepime / vanc. Neutropenia resolved the following day, cultures were without growth, patient was clinically improving, so antibiotics were de-escalated to levaquin as recommended by Pulmonology. Blood cultures without growth since 07/23. Patient is to complete 7 days of PO levaquin for a total of 10 days antibiotic coverage. She initially required oxygen supplementation, but this was weaned off by day of discharge. Chest x-ray on day of discharge noted some improvement of opacities. Patient was feeling better, breathing more comfortably on room air, afebrile > 48 hours, and was deemed stable for discharge home. Incidentally seen on CT chest / abdomen: Multiple lytic metastatic lesions were present in thoracolumbar spine / left pelvis which is highly concerning for multiple myeloma. Labs for SPEP, UPEP, immunofixation, Bence-Singh protein were sent out. Peripheral blood smear (07/25): noted leukopenia with absolute neutropenia and left shit. normocytic, normochromic anemia with mild anisopoikilocytosis. thrombocytopenia. M-Eran was noted to be elevated 2.0. Discussed with patient regarding CT results / lab findings. Patient reported she has a follow up scheduled in late August for further work up / discussion. Dr. Wheeler was notified of results over phone and recommended that the patient maintain the scheduled appointment with her on 08/30/23, and can follow up on send out results and continue the workup. Iron studies were checked this hospitalization and were consistent with moderate iron deficiency anemia (iron:35 Transferrin%: 18.5). She required 1 transfusion this hospitalization on 07/25. No obvious bleeding seen. Patient denied any bleeding. Patient reports shes been on oral iron every other day for a few months now and advised patient to continue iron supplementation on discharge. hgb has remained stable around 8 Advised to repeat iron studies in a few months to recheck iron levels. Repeat CBC in ~1 week to monitor hemoglobin. hgb on discharge: 7.9. Medications: Levaquin x7 days Follow up: PCP 3-5 days Pulm 2-4 weeks Hematology / oncology as already scheduled in August Physical Exam: GEN: Alert, oriented, NAD at rest HEENT: Normal conjunctiva, sclera anicteric, CV: Regular rate and rhythm, no edema Pulm: Nonlabored respirations on room air, Productive cough ABD: soft, nontender, nondistended Neuro: Normal speech, normal affect Vital Signs/Physical Exam: Temp Pulse Resp BP Pulse Ox 98.6 F 76 16 154/66 H 95 07/27/23 16:00 07/27/23 16:00 07/27/23 16:00 07/27/23 16:00 07/27/23 16:00 Laboratory Data at Discharge: WBC 5.50 thou/uL (4.3-10.9) 07/27/23 05:30 Hgb 7.9 g/dL (12.0-15.0) L 07/27/23 05:30 Hct 24.1 % (36.0-45.0) L 07/27/23 05:30 Plt Count 127 thou/uL (152-406) L 07/27/23 05:30 PT 15.3 SECONDS (9.5-12.5) H 07/23/23 23:53 INR 1.40 07/23/23 23:53 APTT 25.3 SECONDS (24.3-36.9) 07/23/23 23:53 Sodium 142 mEq/L (136-145) 07/27/23 05:30 Potassium 4.1 mEq/L (3.5-5.1) 07/27/23 05:30 BUN 8 mg/dL (7-18) 07/27/23 05:30 Creatinine 0.86 mg/dL (0.55-1.02) 07/27/23 05:30 Glucose 98 mg/dL (74-106) 07/27/23 05:30 Phosphorus 3.1 mg/dL (2.5-4.9) 07/26/23 06:05 Magnesium 1.9 mg/dL (1.6-2.4) 07/27/23 05:30 Total Bilirubin 0.6 mg/dL (0.2-1.0) 07/23/23 23:53 AST 32 U/L (15-37) 07/23/23 23:53 ALT 27 U/L (13-56) 07/23/23 23:53 Alkaline Phosphatase 55 U/L (45-117) 07/23/23 23:53 Home Medications: Pantoprazole Sodium [Protonix] 40 mg PO DAILY 07/24/23 atenoloL [Atenolol] 100 mg PO DAILY 07/24/23 lisinopriL [Lisinopril] 30 mg PO DAILY 07/24/23 levoFLOXacin [Levaquin] 750 mg PO DAILY 7 Days #7 tab 07/27/23 New Medications: levoFLOXacin [Levaquin] 750 mg PO DAILY 7 Days #7 tab Physician Discharge Instructions: Patient presented with fever, cough, lethargy. Patient was found to have Bilateral pneumonia mostly consolidated in LLL seen on CT. Labwork was consistent with pancytopenia / neutropenia on admission. As a result, Pulm and ID were consulted, and received empiric IV cefepime / vanc. Neutropenia resolved the following day, cultures were without growth, patient was clinically improving, so antibiotics were de-escalated to levaquin as recommended by Pulmonology. Blood cultures without growth since 07/23. Patient is to complete 7 days of PO levaquin for a total of 10 days antibiotic coverage. She initially required oxygen supplementation, but this was weaned off by day of discharge. Chest x-ray on day of discharge noted some improvement of opacities. Patient was feeling better, breathing more comfortably on room air, afebrile > 48 hours, and was deemed stable for discharge home. Incidentally seen on CT chest / abdomen: Multiple lytic metastatic lesions were present in thoracolumbar spine / left pelvis which is highly concerning for multiple myeloma. Labs for SPEP, UPEP, immunofixation, Bence-Singh protein were sent out. Peripheral blood smear (07/25): noted leukopenia with absolute neutropenia and left shit. normocytic, normochromic anemia with mild anisopoikilocytosis. thrombocytopenia. M-Eran was noted to be elevated 2.0. Discussed with patient regarding CT results / lab findings. Patient reported she has a follow up scheduled in late August for further work up / discussion. Dr. Wheeler was notified of results over phone and reocmmended that the patient maintain the scheduled appointment with her on 08/30/23, and can follow up on send out results and continue the workup. Iron studies were checked this hospitalization and were consistent with moderate iron deficiency anemia (iron:35 Transferrin%: 18.5). She required 1 transfusion this hospitalization on 07/25. No obvious bleeding seen. Patient denied any bleeding. Patient reports shes been on oral iron every other day for a few months now and advised patient to continue iron supplementation on discharge. hgb has remained stable around 8 Advised to repeat iron studies in a few months to recheck iron levels. Repeat CBC in ~1 week to monitor hemoglobin. hgb on discharge: 7.9. Medications: Levaquin x7 days Follow up: PCP 3-5 days Pulm 2-4 weeks Hematology / oncology as already scheduled in August Followup: En Penny MD [ACTIVE - CAN ADMIT] - (F/U in 2-4 weeks) Lisa Irene MD [Primary Care Provider] - (F/U in 3-5 days) Time spent managing pt's care (in minutes): 45
[2023-07-28 15:47] LABS: Kappa Lambda Comment REPORT
[2023-07-31 14:50] LABS: Beta Globulin 24 HR Urine 14 %; Gamma Globulin, 24hr Urine 64 %; Interpretation: REPORT; Protein/Crea Ratio in g 736 mg/g creat (<150); Protein/Crea Ratio in mg 0.736 (<0.150); Urine Alpha-2-Globulins, 24 Hr 9 %; Urine PEP Abn Protein Band1 226 mg/24 h; Urine Total Volume 24 Hours 500 mL
== END 2023-07-27 18:00 | disposition home or self-care (01) | DRG 194 ==
LOC: ER 23:17 → ERHOLD 07-24 02:38 → 4TH 07-24 02:57
PROVIDERS: ADMIT Internal Medicine Nephrology; ATTEND Hospitalist
PROC: 30233N1 Transfusion of Nonautologous Red Blood Cells into Peripheral Vein, Percutaneous Approach (ICD-10-PCS; principal; 2023-07-25)
DX: J18.9 Pneumonia, unspecified organism (principal); C79.51 Secondary malignant neoplasm of bone; D61.818 Other pancytopenia; C79.89 Secondary malignant neoplasm of other specified sites; I10 Essential (primary) hypertension; D50.9 Iron deficiency anemia, unspecified; N28.1 Cyst of kidney, acquired; D46.9 Myelodysplastic syndrome, unspecified; Z88.0 Allergy status to penicillin; Z11.52 Encounter for screening for COVID-19; Z98.51 Tubal ligation status; Z79.899 Other long term (current) drug therapy
CPT/HCPCS: 36415; 36430; 71045; 71260; 74177; 80048; 80053; 83520; 83540; 83605; 83735; 83880; 83883; 84100; 84132; 84165; 84166; 84466; 85014; 85018; 85025; 85610; 85730; 86334; 86335; 86850; 86900; 86901; 86920; 87040; 87804; 87811; 93005; 94640; 96365; 99285; J0360; J0692; J1650; J3475; J7030; J7040; J7050; J7613; J7644; P9016; Q9967

== ENCOUNTER 2023-10-03 12:47 | Emergency (ER) | payer OTHER ==
--- OUTSIDE RECORDS SUMMARY | 2023-10-03 12:52 | XMS REPORT | Continuity of Care Document ---
Author Name Unknown Address [address] [facility] [address] [place] [address] [facility] thconnect Address [address] [facility] [address] [place] [address] Care Team Providers Care Production Assembler Name Role Phone Lisa Irene Attending Clinician Unavailable Maddie Hart Attending Clinician Unavailable VASU CACERES Attending Clinician Unavail able Payers Payer Name Policy Type Policy Number Effective Date Expirati on Date Source [employer] 53 [id number] 2021 00:00:00 [facility] Problems Condition Name Condition Details Condition Category Status Onset Date Resolution Date Last Treatment Date Treating Clinician Comments Source Allergic rhinitis Non-season al allergic rhinitis, unspecifie d trigger Problem [facility] 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 Benign hypertensi on with chronic kidney disease, stage III Problem [facility] [id number] Spasm of muscle of lower back Problem [facility] [id number] Strain of lumbar region, initial encounter Problem [facility] [id number] Muscle spasms of both lower extremitie s Problem [facility] [id number] Obesity (BMI 30-39.9) Problem [facility] Hypertensi on Hypertensi on Problem [facility] Anemia due to chronic blood loss Iron deficiency anemia secondary to blood loss (chronic) Problem [facility] Anemia in chronic kidney disease Anemia in chronic kidney disease Problem [facility] Chronic anemia Anemia in other chronic diseases classified elsewhere Problem [facility] [id number] Stage 3a chronic kidney disease Problem [facility] Allergies, Adverse Reactions, Alerts Allergy Name Allergy Type Status Severity Reaction(s) Onset Date Inactive Date Treating Clinician Comments Source Penicill in Penicill in Active rash [facility] Social History Social Habit Start Date Stop Date Quantity Comments Source History of Tobacco Use [facility] Sex Assigned At [facility] Smoking Status Start Date Stop Date Source Never Smoker [facility] Medications Ordered Medication Name Filled Medication Name Start Date Stop Date Current Medication? Ordering Clinician Indication Dosage Frequency Signature (SIG) Comments Components Source Fluticasone Propionate 50 MCG/ACT Fluticasone Propionate 50 MCG/ACT 12-20 00:00: 00 No 1{spray _in_eac h_nostr il} QD Fluticason e Propionate 50 MCG/ACT Loratadine 10 MG Loratadine 10 MG 12-20 00:00: 00 No 1{table t} QD Loratadine 10 MG Benzonatate 100 MG Benzonatate 100 MG 12-20 00:00: 00 No 1{capsu le_as_n eeded} TID Benzonatat e 100 MG Fluticasone Propionate 50 MCG/ACT Fluticasone Propionate 50 MCG/ACT 12-20 00:00: 00 No 1{spray _in_eac h_nostr il} QD Fluticason e Propionate 50 MCG/ACT Loratadine 10 MG Loratadine 10 MG 12-20 00:00: 00 No 1{table t} QD Loratadine 10 MG Benzonatate 100 MG Benzonatate 100 MG 12-20 00:00: 00 No 1{capsu le_as_n eeded} TID Benzonatat e 100 MG Fluticasone Propionate 50 MCG/ACT Fluticasone Propionate 50 MCG/ACT 12-20 00:00: 00 No 1{spray _in_eac h_nostr [...] MG Benzonatate 100 MG Benzonatate 100 MG 0 12-20 00:00: 00 No 1{capsu le_as_n eeded} TID Benzonatat e 100 MG Loratadine 10 MG Loratadine 10 MG 0 [...] 50 MCG/ACT Fluticasone Propionate 50 MCG/ACT 3-0 7- 00:00: 00 No 1{spray _in_eac h_nostr il} QD Fluticason e Propionate 50 MCG/ACT Loratadine 10 MG Loratadine 10 MG 2022-0 7- 00:00: 00 No 1{table t} QD Loratadine 10 MG Fluticasone Propionate 50 MCG/ACT Fluticasone Propionate 50 MCG/ACT 3-0 7- 00:00: 00 No 1{spray _in_eac h_nostr il} QD Fluticason e Propionate 50 MCG/ACT Loratadine 10 MG Loratadine 10 MG 2022-0 7- 00:00: 00 No 1{table t} QD Loratadine 10 MG Fluticasone Propionate 50 MCG/ACT Fluticasone Propionate 50 MCG/ACT 3-0 7- 00:00: 00 No 1{spray _in_eac h_nostr il} QD Fluticason e Propionate 50 MCG/ACT Loratadine 10 MG Loratadine 10 MG 2022-0 - 00:00: 00 No 1{table t} QD Loratadine 10 MG Fluticasone Propionate 50 MCG/ACT Fluticasone Propionate 50 MCG/ACT 3-0 7- 00:00: 00 No 1{spray _in_eac h_nostr il} QD Fluticason e Propionate 50 MCG/ACT Loratadine 10 MG Loratadine 10 MG 3-0 7- 00:00: 00 No 1{table t} QD Loratadine 10 MG Fluticasone Propionate 50 MCG/ACT Fluticasone Propionate 50 MCG/ACT 3-0 7- 00:00: 00 No 1{spray _in_eac h_nostr il} QD Fluticason e Propionate 50 MCG/ACT Loratadine 10 MG Loratadine 10 MG 2022-0 7- 00:00: 00 No 1{table t} QD Loratadine [...] 15mg 2022-0 5-17 00:00: 00 No 30mg [facility] Ketorolac 15mg Ketorolac 15mg 2022-0 5-17 00:00: 00 No 30mg [facility] Ketorolac 15mg Ketorolac 15mg 2022-0 5-17 00:00: 00 No 30mg [facility] Ketorolac 15mg Ketorolac 15mg 2022-0 5-17 00:00: 00 No 30mg [facility] Ketorolac 15mg Ketorolac 15mg 2022-0 5-17 00:00: 00 No 30mg [facility] Ketorolac 15mg Ketorolac 15mg 2022-0 5-17 00:00: 00 No 30mg [facility] Ketorolac 15mg Ketorolac 15mg 2022-0 5-17 00:00: 00 No 30mg [facility] Ketorolac 15mg Ketorolac 15mg 2022-0 5-17 00:00: 00 No 30mg [facility] Ketorolac 15mg Ketorolac 15mg 2022-0 5-17 00:00: 00 No 30mg [facility] Ketorolac 15mg Ketorolac 15mg 2022-0 5-17 00:00: 00 No 30mg [facility] Ketorolac 15mg Ketorolac 15mg 2022-0 5-17 00:00: 00 No 30mg [facility] Ketorolac 15mg Ketorolac 15mg 2021-0 5-17 00:00: 00 No 30mg [facility] Ketorolac 15mg Ketorolac 15mg 2021-0 5-17 00:00: 00 No 30mg [facility] Ketorolac 15mg Ketorolac 15mg 2021-0 5-17 00:00: 00 No 30mg [facility] Ketorolac 15mg Ketorolac 15mg 2021-0 5-17 00:00: 00 No 30mg [facility] Ketorolac 15mg Ketorolac 15mg 2021-0 5-17 00:00: 00 No 30mg [facility] Ketorolac 15mg Ketorolac 15mg 2021-0 5-17 00:00: 00 No 30mg [facility] tiZANidine HCl 4 MG tiZANidine HCl 4 MG 2021-0 10-26 00:00: 00 11-02 00:00 :00 No 1{table t_as_ne eded} TID tiZANidine HCl 4 MG Lisinopril Lisinopril 6 00:00: 00 Yes Maddie Hart 1 tablet [facility] Lisinopril 10 MG Lisinopril 10 MG 11-10 00:00: 00 No 1{table t} QD Lisinopril 10 MG Aspirin Adult Low Strength Aspirin Adult Low Strength Yes Maddie Hart 1 tablet [facility] Atenolol Atenolol Yes Maddie Hart take one tablet by mouth [facility] Aspirin Adult Low Strength 81 MG Aspirin [...] No 1{table t} QD Lisinopril 30 MG Lisinopril 10 MG Lisinopril 10 MG No 1{table t} QD Lisinopril 10 MG Atenolol 100 MG Atenolol 100 MG No 1{table t} QD Atenolol 100 MG Lisinopril 30 MG Lisinopril 30 MG No 1{table t} QD Lisinopril 30 MG Lisinopril 10 MG Lisinopril 10 MG No 1{table t} QD Lisinopril 10 MG Atenolol 100 MG Atenolol 100 MG No 1{table t} QD Atenolol 100 MG Lisinopril 30 MG Lisinopril 30 MG No 1{table t} QD Lisinopril 30 MG Lisinopril 10 MG Lisinopril 10 MG No 1{table t} QD Lisinopril 10 MG Atenolol 100 MG Atenolol 100 MG No 1{table t} QD Atenolol 100 MG Lisinopril 30 MG Lisinopril 30 MG No 1{table t} QD Lisinopril 30 MG Lisinopril 10 MG Lisinopril 10 MG [...] No 1{table t} QD Lisinopril 30 MG levoFLOXaci n 750 MG levoFLOXaci n 750 MG No 1{table t} QD levoFLOXac in 750 MG Pantoprazol e Sodium 40 MG Pantoprazol e Sodium 40 MG No Pantoprazo le Sodium 40 MG Atenolol 100 MG Atenolol 100 MG No Atenolol 100 MG Lisinopril 30 MG Lisinopril 30 MG No 1{table t} QD Lisinopril 30 MG levoFLOXaci n 750 MG levoFLOXaci n 750 MG No 1{table t} QD levoFLOXac in 750 MG Pantoprazol e Sodium 40 MG Pantoprazol e Sodium 40 MG No Pantoprazo le Sodium 40 MG Atenolol 100 MG Atenolol 100 MG No Atenolol 100 MG Atenolol 100 MG Atenolol 100 MG No 1{table t} QD Atenolol 100 MG Lisinopril 30 MG Lisinopril 30 MG No 1{table t} QD Lisinopril 30 MG levoFLOXaci n 750 MG levoFLOXaci n 750 MG No 1{table t} QD levoFLOXac in 750 MG Pantoprazol e Sodium 40 MG Pantoprazol e Sodium 40 MG No Pantoprazo le Sodium 40 MG Aspirin Adult Low Strength 81 MG [...] QD Aspirin Adult Low Strength 81 MG Vital Signs Vital Name Observation Time Observation Value Comments S fangce height 2023-08-02 08:20:00 59 [in_i] Commo n [facility] weight 2023-08-02 08:20:00 160 [lb_av] Comm on [facility] bmi 2023-08-02 08:20:00 32.31 kg/m2 Comm on [facility] height 2023-05-26 11:20:00 59 [in_i] Commo n [facility] weight 2023-05-26 11:20:00 164[facility]-26 11:20:00 97.1 [degF] Com mon [facility] bmi 2023-05-26 11:20:00 33.2 kg/m2 Commo n [facility] oximetry 2023-05-26 11:20:00 99 % Commo n [facility] respiratory rate 2023-05-26 11:20:00 16 /min Common [facility] blood pressure systolic 2023-05-26 11:20:00 132 mm[Hg] [facility] blood pressure diastolic 2023-05-26 11:20:00 76 mm[Hg] Common [facility] height 2023-02-23 11:00:00 59 [in_i] Commo n [facility] weight 2023-02-23 11:00:00 167.4 [lb_av] Co mmon [facility] temperature 2023-02-23 11:00:00 97.3 [degF] Com [facility] bmi 2023-02-23 11:00:00 33.81 kg/m2 Comm on [facility] oximetry 2023-02-23 11:00:00 96 % Commo n [facility] respiratory rate 2023-02-23 11:00:00 16 /min Common [facility] blood pressure systolic 2023-02-23 11:00:00 138 mm[Hg] Common [facility] blood pressure diastolic 2023-02-23 11:00:00 82 mm[Hg] Common [facility] height 2023-01-20 13:00:00 59 [in_i] Commo n [facility] weight 2023-01-20 13:00:00 168.6 [lb_av] Co on [facility] temperature 2023-01-20 13:00:00 97.9 [degF] Com [facility] bmi 2023-01-20 13:00:00 34.05 kg/m2 Comm on [facility] oximetry 2023-01-20 13:00:00 98 % Commo n [facility] respiratory rate 2023-01-20 13:00:00 16 /min Common [facility] blood pressure systolic 2023-01-20 13:00:00 134 mm[Hg] Common [facility] blood pressure diastolic 2023-01-20 13:00:00 82 mm[Hg] Common [facility] height 2023-01-20 13:20:00 59 [in_i] Commo n [facility] weight 2023-01-20 13:20:00 168.6 [lb_av] Co mmon [facility] temperature 2023-01-20 13:20:00 97.9 [degF] Com [facility] bmi 2023-01-20 13:20:00 34.05 kg/m2 Comm on [facility] oximetry 2023-01-20 13:20:00 98 % Commo n [facility] respiratory rate 2023-01-20 13:20:00 16 /min Common [facility] blood pressure systolic 2023-01-20 13:20:00 134 mm[Hg] Common [facility] blood pressure diastolic 2023-01-20 13:20:00 82 mm[Hg] [facility] height 2022-12-20 11:40:00 59 [in_i] Commo n [facility] weight 2022-12-20 11:40:00 171 [lb_av] Comm on [facility] temperature 2022-12-20 11:40:00 98.6 [degF] Com [facility] bmi 2022-12-20 11:40:00 34.53 kg/m2 Comm on [facility] height 2022-08-31 10:20:00 59 [in_i] Commo n [facility] weight 2022-08-31 10:20:00 172 [lb_av] Comm on [facility] temperature 2022-08-31 10:20:00 98.0 [degF] Com [facility] bmi 2022-08-31 10:20:00 34.74 kg/m2 Comm on [facility] oximetry 2022-08-31 10:20:00 99 % Commo n [facility] respiratory rate 2022-08-31 10:20:00 17 /min [facility] blood pressure systolic 2022-08-31 10:20:00 134 mm[Hg] Common [facility] blood pressure diastolic 2022-08-31 10:20:00 78 mm[Hg] [facility] height 2022-06-20 11:40:00 59 [in_i] Commo n [facility] weight 2022-06-20 11:40:00 175 [lb_av] Comm on [facility] temperature 2022-06-20 11:40:00 97.7 [degF] Com mon [facility] bmi 2022-06-20 11:40:00 35.34 kg/m2 Comm on [facility] oximetry 2022-06-20 11:40:00 97 % Commo n [facility] respiratory rate 2022-06-20 11:40:00 16 /min Common [facility] blood pressure systolic 2022-06-20 11:40:00 128 mm[Hg] [facility] diastolic 2022-06-20 11:40:00 76 mm[Hg] Common [facility] height 2022-03-07 09:20:00 59 [in_i] Commo n [facility] weight 2022-03-07 09:20:00 181.2 [lb_av] Co mmon [facility] temperature 2022-03-07 09:20:00 97.8 [degF] Com mon [facility] bmi 2022-03-07 09:20:00 36.59 kg/m2 Comm on [facility] oximetry 2022-03-07 09:20:00 98 % Commo n [facility] respiratory rate 2022-03-07 09:20:00 16 /min Common [facility] blood pressure systolic 2022-03-07 09:20:00 120 mm[Hg] [facility] blood pressure diastolic 2022-03-07 09:20:00 72 mm[Hg] [facility] height 2021-12-06 15:20:00 59 [in_i] Commo n [facility] weight 2021-12-06 15:20:00 186.2 [lb_av] Co mmon [facility] temperature 2021-12-06 15:20:00 98.4 [degF] Com mon [facility] bmi 2021-12-06 15:20:00 37.6 kg/m2 Commo n [facility] oximetry 2021-12-06 15:20:00 98 % Commo n [facility] respiratory rate 2021-12-06 15:20:00 16 /min [facility] blood pressure systolic 2021-12-06 15:20:00 132 mm[Hg] [facility] blood pressure diastolic 2021-12-06 15:20:00 74 mm[Hg] [facility] height 2021-12-06 16:00:00 59 [in_i] Commo n [facility] weight 2021-12-06 16:00:00 186.2 [lb_av] Co mmon [facility] temperature 2021-12-06 16:00:00 98.4 [degF] Com [facility] bmi 2021-12-06 16:00:00 37.6 kg/m2 Commo n [facility] oximetry 2021-12-06 16:00:00 98 % Commo n [facility] respiratory rate 2021-12-06 16:00:00 16 /min Common [facility] blood pressure systolic 2021-12-06 16:00:00 132 mm[Hg] [facility] blood pressure diastolic 2021-12-06 16:00:00 74 mm[Hg] [facility] height 2021-10-26 14:00:00 59 [in_i] Commo n [facility] weight 2021-10-26 14:00:00 187.6 [facility]lb[facility]av] [facility] 2021-10-26 14:00:00 97.5 [degF] Com [facility] bmi 2021-10-26 14:00:00 37.89 kg/m2 Comm on [facility] oximetry 2021-10-26 14:00:00 98 % Commo n [facility] respiratory rate 2021-10-26 14:00:00 16 /min [facility] blood pressure systolic 2021-10-26 14:00:00 136 mm[Hg] [facility] blood pressure diastolic 2021-10-26 14:00:00 82 mm[Hg] [facility] Encounters Start Date/Time End Date/Time Encounter Type Admission Type Attending [facility] Care Facility Care Department Encounter ID Source 2023-01-19 09:15:00 Outpatient TetoLisa [facility] [id number] [facility] 2022-08-30 13:57:00 Outpatient TetoLisa [facility] [id number] [facility] 2022-06-20 09:35:00 Outpatient IreneLisa sharpe [facility] [id number] [facility] 2021-12-02 13:22:01 Outpatient IreneLisa sharpe [facility] [id number] [facility] 2021-10-28 12:27:03 Outpatient TetoLisa [facility] [id number] [facility] 2021-10-25 14:30:01 Outpatient IreneLisa [facility] [id number] [facility] 2021-10-22 13:50:00 Outpatient Shasha Harta [facility] [id number] [facility] 2021-07-07 12:24:19 Outpatient Maddie Hart [facility] [id number] [facility] 2021-07-07 11:54:33 Outpatient Maddie Hart [facility] [id number] [facility] 2021-07-07 11:31:04 Outpatient Maddie Hart [facility] [id number] [facility] 2023-08-16 09:35:00 2023-08-16 13:27:00 Outpatient VASU CACERES [facility] [id number] 00 [id number] 2023-08-08 00:00:00 2023-08-08 00:00:00 (TEL) [facility] ST[facility] [id number] [facility] 2023-08-02 00:00:00 2023-08-02 00:00:00 (EST. VIDEO) EST VIRTUAL VIDEO VISIT [facility] ST[facility] [id number] [facility] 2023-07-28 00:00:00 2023-07-28 00:00:00 (TEL) [facility] [id number] [facility] 2023-06-15 00:00:00 2023-06-15 00:00:00 (TEL) [facility] [id number] [facility] 2023-05-26 00:00:00 2023-05-26 00:00:00 OFFICE VISIT ESTAB PT LEVEL 4 [facility] ST[facility] [id number] [facility] 2023-05-09 00:00:00 2023-05-09 00:00:00 (TEL) [facility] [id number] [facility] 2023-02-23 00:00:00 2023-02-23 00:00:00 OFFICE VISIT ESTAB PT LEVEL 4 [facility] [id number] [facility] 2023-02-16 00:00:00 2023-02-16 00:00:00 (TEL) [facility]C ST[facility] [id number] [facility] 2023-01-20 00:00:00 2023-01-20 00:00:00 OFFICE VISIT ESTAB PT LEVEL 4 [facility] [id number] [facility] 2023-01-20 00:00:00 2023-01-20 00:00:00 SUB ANNUAL [facility] WELLNESS VISIT [facility] STL[facility] [id number] [facility] 2023-01-12 00:00:00 2023-01-12 00:00:00 (TEL) [facility] [id number] [facility] 2022-12-20 00:00:00 2022-12-20 00:00:00 OFFICE VISIT ESTAB PT LEVEL 3 [facility] [id number] [facility] 2022-08-31 00:00:00 2022-08-31 00:00:00 OFFICE VISIT ESTAB PT LEVEL 4 [facility] [id number] [facility] 2022-06-20 00:00:00 2022-06-20 00:00:00 OFFICE VISIT ESTAB PT LEVEL 3 [facility] [id number] [facility] 2022-03-07 00:00:00 2022-03-07 00:00:00 OFFICE VISIT ESTAB PT LEVEL 4 [facility] [id number] [facility] 2022-02-22 00:00:00 2022-02-22 00:00:00 (TEL) [facility] [id number] [facility] 2021-12-06 00:00:00 2021-12-06 00:00:00 OFFICE VISIT EST PT LEVEL 3 [facility] [id number] [facility] 2021-12-06 00:00:00 2021-12-06 00:00:00 (MCR WELL) Medicare Wellness [facility] [id number] [facility] 2021-12-06 00:00:00 2021-12-06 00:00:00 (TEL) [facility] ST[facility] [id number] [facility] 2021-10-26 00:00:00 2021-10-26 00:00:00 OFFICE VISIT EST PT LEVEL 3 [facility] [id number] [facility] 2020-10-05 00:00:00 2020-10-05 00:00:00 Outpatient [facility] [id number] [facility] 2020-09-02 00:00:00 2020-09-02 00:00:00 Outpatient [facility] [id number] [facility] 2020-07-06 00:00:00 2020-07-06 00:00:00 Outpatient [facility] [id number] [facility] 2020-06-17 00:00:00 2020-06-17 00:00:00 Outpatient [facility] [id number] [facility] 2020-04-14 00:00:00 2020-04-14 00:00:00 Outpatient [facility] [id number] [facility] 2019-12-25 11:40:00 2019-12-25 11:40:[address] [facility] [id number] [facility] 2019-11-11 11:40:00 2019-11-11 11:40:[address] [facility] [id number] [facility] 2019-08-13 09:00:00 2019-08-13 09:00:[address] [facility] [id number] [facility] 2019-05-10 08:20:00 2019-05-10 08:20:[address] [facility] [id number] [facility] 2018-08-24 09:41:00 2018-08-24 09:41:[address] [facility] [id number] [facility] 2018-07-05 10:00:00 2018-07-05 10:00:[address] [facility] [id number] [facility] 2018-02-09 10:52:00 2018-02-09 10:52:00 Outpatient [facility] [id number] [facility] 2018 09:34:00 2018 09:34:00 Outpatient [facility] [id number] [facility] 2018-01-29 09:00:00 2018-01-29 09:00:00 Outpatient [facility] [id number] [facility] Results Test Description Test Time Test Comments Results Result Co mments Source [id number] 00:00:00* Test Item Value Reference Range Interpretation Comme nts FERRITIN (test code = 34330-6) 101 NG/ML See_Comment [Automated messa ge] The system which generated this result transmitted reference range: 13-200 NG/ML. The reference range was not used to interpret this result as normal/abnormal. COMPREHENSIVE METABOLIC [id number] 00:00:00* Test Item Value Reference Range Interpretation [...] result as normal/abnormal. CALCIUM (test code = 09053-8) 9.5 MG/DL See_Comment [Automated messa ge] The [...] as normal/abnormal. CALC GLOBULIN (test code = 25597-9) 3.9 G/DL See_Comment H [Automated messa ge] [...] normal/abnormal. eGFR (2020 CKD-EPI) (test code = 51567-1) 66 ML/MIN/1.73 See_Comment [Automated messa ge] The [...] interpret this result as normal/abnormal. CBC W/AUTO [id number] 00:00:00* Test Item Value Reference Range Interpretation Comme nts NUCLEATED RBCS (test code = 87845-4) 0.0 /100 WBC'S See_Comment [Automated messa ge] The system which generated this result transmitted reference range: 0.0 /100 WBC'S. The reference range was not used to interpret this result as normal/abnormal. ABSOLUTE EOSINOPHILS (test code = 41285-8) 0.07 K/UL See_Comment [Automated messa ge] The system which generated this result transmitted reference range: 0.00-0.50 K/UL. The reference range was not used to interpret this result as normal/abnormal. ABSOLUTE LYMPHOCYTES (test code = 76151-4) 1.80 K/UL See_Comment [Automated messa ge] The system which generated this result transmitted reference range: 1.00-4.00 K/UL. The reference range was not used to interpret this result as normal/abnormal. ABSOLUTE MONOCYTES (test code = 47927-7) 0.26 K/UL See_Comment [Automated messa ge] The system which generated this result transmitted reference range: 0.20-1.00 K/UL. The reference range was not used to interpret this result as normal/abnormal. ABSOLUTE NEUTROPHILS (test code = 30380-4) 1.62 K/UL See_Comment [Automated messa ge] The system which generated this result transmitted reference range: 1.50-7.50 K/UL. The reference range was not used to interpret this result as normal/abnormal. BASOPHILS (test code = 26827-7) 0.5 % EOSINOPHILS (test code = 32374-1) 1.8 % HEMATOCRIT (test code = 93767-9) 29.8 % See_Comment L [Automated messa ge] [...] result as normal/abnormal. LYMPHOCYTES (test code = 32337-0) 47.5 % MCH (test code = 74619-3) 27.5 PG See_Comment [Automated messa ge] The system which generated this result transmitted reference range: 25.0-33.0 PG. The reference range was not used to interpret this result as normal/abnormal. MCHC (test code = 77640-2) 30.9 G/DL See_Comment L [Automated messa ge] The system which generated this result transmitted reference range: 31.0-36.0 G/DL. The reference range was not used to interpret this result as normal/abnormal. MCV (test code = 40903-7) 89.0 fL See_Comment [Automated messa ge] The system which generated this result transmitted reference range: 80.0-99.0 fL. The reference range was not used to interpret this result as normal/abnormal. MONOCYTES (test code = 78182-6) 6.9 % NEUTROPHILS (test code = 85183-4) 42.8 % PLATELET COUNT (test code = 56689-3) 175 K/UL See_Comment [Automated messa ge] The system which generated this result transmitted reference range: 130-400 K/UL. The reference range was not used to interpret this result as normal/abnormal. RBC (test code = 06312-1) 3.35 M/UL See_Comment L [Automated messa ge] The system which generated this result transmitted reference range: 3.80-5.40 M/UL. The reference range was not used to interpret this result as normal/abnormal. RDW (test code = 82185-2) 17.1 % See_Comment H [Automated messa ge] The system which generated this result transmitted reference range: 11.5-15.0 %. The reference range was not used to interpret this result as normal/abnormal. WBC (test code = 72238-9) 3.8 K/UL See_Comment [Automated messa ge] The system which generated this result transmitted reference range: 3.5-11.0 K/UL. The reference range was not used to interpret this result as normal/abnormal. [id number] 00:00:00* Test Item Value Reference Range Interpretation Comme nts FERRITIN (test code = 51417-8) 81 NG/ML See_Comment [Automated messa ge] The system which generated this result transmitted reference range: 13-200 NG/ML. The reference range was not used to interpret this result as normal/abnormal. HEMOGLOBIN [id number] 00:00:00* Test Item Value Reference Range Interpretation Comme nts HEMOGLOBIN A1c (test code = 4548-4) 5.9 % See_Comment H [Automated messa ge] The system which generated this result transmitted reference range: 4.2-5.6 %. The reference range was not used to interpret this result as normal/abnormal. COMPREHENSIVE METABOLIC [id number] 00:00:00* Test Item Value Reference Range Interpretation [...] result as normal/abnormal. CALCIUM (test code = 23225-4) 9.4 MG/DL See_Comment [Automated messa ge] The [...] as normal/abnormal. CALC GLOBULIN (test code = 34740-0) 3.4 G/DL See_Comment [Automated messa ge] The [...] normal/abnormal. eGFR (2020 CKD-EPI) (test code = 64303-9) 61 ML/MIN/1.73 See_Comment [Automated messa ge] The [...] interpret this result as normal/abnormal. CBC W/AUTO [id number] 00:00:00* Test Item Value Reference Range Interpretation Comme nts NUCLEATED RBCS (test code = 82667-5) 0.0 /100 WBC'S See_Comment [Automated messa ge] The system which generated this result transmitted reference range: 0.0 /100 WBC'S. The reference range was not used to interpret this result as normal/abnormal. ABSOLUTE EOSINOPHILS (test code = 57711-8) 0.06 K/UL See_Comment [Automated messa ge] The system which generated this result transmitted reference range: 0.00-0.50 K/UL. The reference range was not used to interpret this result as normal/abnormal. ABSOLUTE LYMPHOCYTES (test code = 62091-2) 1.83 K/UL See_Comment [Automated messa ge] The system which generated this result transmitted reference range: 1.00-4.00 K/UL. The reference range was not used to interpret this result as normal/abnormal. ABSOLUTE MONOCYTES (test code = 58937-3) 0.28 K/UL See_Comment [Automated messa ge] The system which generated this result transmitted reference range: 0.20-1.00 K/UL. The reference range was not used to interpret this result as normal/abnormal. ABSOLUTE NEUTROPHILS (test code = 12545-5) 1.53 K/UL See_Comment [Automated messa ge] The system which generated this result transmitted reference range: 1.50-7.50 K/UL. The reference range was not used to interpret this result as normal/abnormal. BASOPHILS (test code = 66120-6) 0.8 % EOSINOPHILS (test code = 10703-9) 1.6 % HEMATOCRIT (test code = 50748-4) 31.1 % See_Comment L [Automated messa ge] [...] result as normal/abnormal. LYMPHOCYTES (test code = 22777-3) 48.8 % MCH (test code = 59209-9) 27.1 PG See_Comment [Automated messa ge] The system which generated this result transmitted reference range: 25.0-33.0 PG. The reference range was not used to interpret this result as normal/abnormal. MCHC (test code = 09749-4) 30.9 G/DL See_Comment L [Automated messa ge] The system which generated this result transmitted reference range: 31.0-36.0 G/DL. The reference range was not used to interpret this result as normal/abnormal. MCV (test code = 11782-9) 87.9 fL See_Comment [Automated messa ge] The system which generated this result transmitted reference range: 80.0-99.0 fL. The reference range was not used to interpret this result as normal/abnormal. MONOCYTES (test code = 59614-4) 7.5 % NEUTROPHILS (test code = 65225-7) 40.8 % PLATELET COUNT (test code = 66730-0) 194 K/UL See_Comment [Automated messa ge] The system which generated this result transmitted reference range: 130-400 K/UL. The reference range was not used to interpret this result as normal/abnormal. RBC (test code = 00981-0) 3.54 M/UL See_Comment L [Automated messa ge] The system which generated this result transmitted reference range: 3.80-5.40 M/UL. The reference range was not used to interpret this result as normal/abnormal. RDW (test code = 52173-9) 16.2 % See_Comment H [Automated messa ge] The system which generated this result transmitted reference range: 11.5-15.0 %. The reference range was not used to interpret this result as normal/abnormal. WBC (test code = 12300-8) 3.8 K/UL See_Comment [Automated messa ge] The system which generated this result transmitted reference range: 3.5-11.0 K/UL. The reference range was not used to interpret this result as normal/abnormal. [id number] 00:00:00* Test Item Value Reference Range Interpretation Comme nts FERRITIN (test code = 66091-4) 131 NG/ML See_Comment [Automated messa ge] The system which generated this result transmitted reference range: 13-200 NG/ML. The reference range was not used to interpret this result as normal/abnormal. HEMOGLOBIN [id number] 00:00:00* Test Item Value Reference Range Interpretation Comme nts HEMOGLOBIN A1c (test code = 4548-4) 6.0 % See_Comment H [Automated messa ge] The system which generated this result transmitted reference range: 4.2-5.6 %. The reference range was not used to interpret this result as normal/abnormal. LIPID PANEL WITH REFLEX DIRECT [id number] 00:00:00* Test Item Value Reference Range Interpretation Comme nts CALC LDL CHOL (test code = 83859-6) 66 MG/DL See_Comment [Automated messa ge] The [...] normal/abnormal. RISK RATIO LDL/HDL (test code = 29745-4) 1.89 RATIO See_Comment [Automated message] The system [...] interpret this result as normal/abnormal. COMPREHENSIVE METABOLIC [id number] 00:00:00* Test Item Value Reference Range Interpretation [...] result as normal/abnormal. CALCIUM (test code = 74890-7) 9.8 MG/DL See_Comment [Automated messa ge] The [...] as normal/abnormal. CALC GLOBULIN (test code = 15007-6) 3.5 G/DL See_Comment [Automated messa ge] The [...] normal/abnormal. eGFR (2020 CKD-EPI) (test code = 34586-4) 61 ML/MIN/1.73 See_Comment [Automated messa ge] The system which generated this result transmitted reference range: >60 ML/MIN/1.73. The reference range was not used to interpret this result as normal/abnormal. GLUCOSE (test code = 1558-6) 98 MG/DL See_Comment [Automated [employer]39[employer] ge] The system which generated this result transmitted reference range: 70-99 MG/DL. The reference range was not used to interpret this result as normal/abnormal. POTASSIUM (test code = 2823-3) 4.5 MEQ/L See_Comment [Automated Peer39[employer] ge] The system which generated this result transmitted reference range: 3.5-5.4 MEQ/L. The reference range was not used to interpret this result as normal/abnormal. PROTEIN, TOTAL (test code = 2885-2) 7.1 G/DL See_Comment [Automated [employer]39[employer] ge] The system which generated this result transmitted reference range: 6.1-8.3 G/DL. The reference range was not used to interpret this result as normal/abnormal. AST (test code = 1920-8) 14 U/L See_Comment [Automated Peer39[employer] ge] The system which generated this result transmitted reference range: 9-40 U/L. The reference range was not used to interpret this result as normal/abnormal. ALT (test code = 1742-6) 10 U/L See_Comment [Automated Peer39[employer] ge] The system which generated this result transmitted reference range: 5-40 U/L. The reference range was not used to interpret this result as normal/abnormal. SODIUM (test code = 2951-2) 141 MEQ/L See_Comment [Automated Peer39[employer] ge] The system which generated this result transmitted reference range: 133-146 MEQ/L. The reference range was not used to interpret this result as normal/abnormal. 3D SCR SHERLY BILAT W/CAD3D SCR SHERLY BILAT W/CAD
--- NOTE | 2023-10-03 13:51 | RAD REPORT ---
EXAM DESCRIPTION: USExtremmarc Venous Uni Ltd10/03/2023 1:41 pm CLINICAL HISTORY: Right leg pain COMPARISON: None. FINDINGS: Right common femoral, superficial femoral, greater saphenous, popliteal and right posterio r tibial veins are compressible and demonstrate augmentation. Doppler demonstrates good flow. Grayscale, color and spectral analysis performed on all vessels IMPRESSION: No evidence of deep venous thrombosis involving the right lower extremity.
--- NOTE | 2023-10-03 14:06 | RAD REPORT ---
EXAM DESCRIPTION: RAD - Femur Right - 10/03/2023 1:51 pm CLINICAL HISTORY: Leg pain FINDINGS: No fracture is seen. Osteoporosis. 15 millimeter lucency right acetabulum could represent focal osteoporosis or metastasis.
--- NOTE | 2023-10-03 14:07 | RAD REPORT ---
EXAM DESCRIPTION: RAD - Tib Fib Right - 10/03/2023 1:51 pm CLINICAL HISTORY: Right leg pain FINDINGS: No fracture is seen No bony lesion is visualized
--- NOTE | 2023-10-03 14:14 | ER ---
Nurse's Notes [facility] Name: Kayla Hernandez Age: 73 yrs Sex: Female : 1950 Arrival Date: 10/03/2023 Time: 12:47 Bed 13 Private MD: Diagnosis: Pain in right leg Presentation: 10/02 12:58 Chief complaint: Patient states: she is having right leg pain that started yesterday. ap3 patient states her pain starts in her right hip and goes all the way down to her right foot. patient reports her pain to be a 9/10 on the pain scale at this time. Coronavirus screen: At this time, the client does not indicate any symptoms associated with coronavirus-19. Ebola Screen: No symptoms or risks identified at this time. Initial Sepsis Screen: Does the patient meet any 2 criteria? No. Patient's initial sepsis screen is negative. Does the patient have a suspected source of infection? No. Patient's initial sepsis screen is negative. Risk Assessment: Do you want to hurt yourself or someone else? Patient reports no desire to harm self or others. Onset of symptoms was October 02, 2023. 12:58 Method Of Arrival: Ambulatory ap3 12:58 Acuity: JENNIFER 3 ap3 Triage Assessment: 13:00 General: Appears uncomfortable, Behavior is calm, cooperative, appropriate for age. ap3 Pain: Complains of pain in right leg. Pain: Pain currently is 9 out of 10 on a pain scale. Pain began 1 day ago. Neuro: Level of Consciousness is awake, alert, obeys commands, Oriented to person, place, time, situation. Cardiovascular: Patient's skin is warm and dry. Respiratory: Airway is patent Respiratory effort is even, unlabored, Respiratory pattern is regular, symmetrical. Historical: - Allergies: 13:00 PENICILLINS; ap3 - PMHx: 13:00 Hypertensive disorder; bone cancer (tubal ligation); ap3 - PSHx: 13:00 tubal ligation; ap3 - Immunization history:: Client reports receiving the 2nd dose of the Covid vaccine. - Infectious Disease History:: Denies. - Social history:: Smoking status: Patient denies any tobacco usage or history of. Screenin:00 Abuse screen: Denies threats or abuse. Nutritional screening: No deficits noted. ap3 Tuberculosis screening: No symptoms or risk factors identified. 13:00 [facility] ED Fall Risk Assessment (Adult) History of falling in the last 3 months, ko1 including since admission No falls in past 3 months (0 pts) Confusion or Disorientation No (0 pts) Intoxicated or Sedated No (0 pts) Impaired Gait Yes (1 pt) Mobility Assist Device Used Yes (1 pt) Altered Elimination No (0 pt) Score/Fall Risk Level 0 - 2 = Low Risk Oriented to surroundings, Maintained a safe environment, Educated pt \T\ family on fall prevention, incl call for assistance when getting out of bed, Assessed \T\ reinforced patient's understanding of fall precautions, Provided non-skid footwear, Hourly rounding (assess needs \T\ fall precautionary measures) done, Used ambulatory aids as needed (educated on \T\ assisted with), Used gait belt as appropriate. Assessment: 13:00 General: Appears in no apparent distress. Behavior is calm, cooperative, appropriate ko1 for age. Pain: Complains of pain in right leg. Neuro: No deficits noted. Cardiovascular: No deficits noted. Respiratory: No deficits noted. GI: No deficits noted. : No deficits noted. EENT: No deficits noted. Derm: No deficits noted. Musculoskeletal: Reports pain in right leg. Vital Signs: 12:58 BP 171 / 64; Pulse 58; Resp 18; Temp 99.5; Pulse Ox 10% ; Weight 71.21 kg; Height 4 ft. ap3 10 in. ; Pain 9/10; 13:00 BP 166 / 62; Pulse 62; Resp 16; Pulse Ox 99% ; ko1 12:58 Body Mass Index 32.81 (71.21 kg, 147.32 cm) ap3 12:58 Pain Scale: Adult ap3 ED Course: 12:53 Patient arrived in ED. im 12:58 Georgia Gabriel FNP-C is PHCP. kb 12:58 Jd Du DO is Attending Physician. kb 13:00 Triage completed. ap3 13:00 Patient has correct armband on for positive identification. Allergy band placed. Bed in ko1 low position. Call light in reach. Side rails up X2. Provided Education on: na. Pulse ox on. NIBP on. Door closed. Noise minimized. Lights dimmed. Warm blanket given. 13:00 No provider procedures requiring assistance completed. Patient did not have IV access ko1 during this emergency room visit. 13:01 Arm band placed on right wrist. ap3 13:37 Awa Portillo, RN is Primary Nurse. ko1 13:43 US Extremity Venous Unilateral Ltd In Process Unspecified. EDMS 13:53 Tib Fib Right XRAY In Process Unspecified. EDMS 13:53 Femur Right XRAY In Process Unspecified. EDMS Administered Medications: 14:14 CANCELLED (Duplicate Order): [id number] mg PO once kb 14:24 Drug: Hydrocodone-Acetaminophen PO (7.5 mg-325 mg) 1 tabs PO once Route: PO; ko1 14:40 Follow up: Response: No adverse reaction ko1 Medication: 13:00 VIS not applicable for this client. ko1 Outcome: 13:00 Discharged to home via wheelchair, ko1 13:00 Condition: good 13:00 Discharge instructions given to patient, Instructed on discharge instructions, follow up and referral plans. medication usage, Demonstrated understanding of instructions, follow-up care, medications, Prescriptions given X 2, 14:14 Discharge ordered by MD. kb 14:40 Patient left the ED. ko1 Signatures: Dispatcher [employer] EDMS Georgia Gabriel, REPLENISHMENT MERCHANDISING ASSOCIATE-C REPLENISHMENT MERCHANDISING ASSOCIATE-Cynthia Rodriguez RN RN ap3 Awa Portillo, RN RN ko1 Arleen Byrnes
--- NOTE | 2023-10-03 14:14 | EDPHYS ---
Physician Documentation [facility] Name: Kayla Hernandez Age: 73 yrs Sex: Female : 1950 Arrival Date: 10/03/2023 Time: 12:47 Bed 13 Private MD: ED Physician Jd Du HPI: 10/02 13:00 This 73 yrs old Black Female presents to ER via Ambulatory with complaints of Leg Pain. kb 13:00 Pt is a 73 year old female who presents for right leg pain that started yesterday. kb Denies injury or trauma. States she is currently undergoing chemo for bone cancer with Dr Wheeler. Denies shortness of breath. . Historical: - Allergies: 13:00 PENICILLINS; ap3 - PMHx: 13:00 Hypertensive disorder; bone cancer (tubal ligation); ap3 - PSHx: 13:00 tubal ligation; ap3 - Immunization history:: Client reports receiving the 2nd dose of the Covid vaccine. - Infectious Disease History:: Denies. - Social history:: Smoking status: Patient denies any tobacco usage or history of. ROS: 13:00 Constitutional: As per HPI kb Exam: 13:00 Constitutional: This is a well developed, well nourished patient who is awake, alert, kb and in no acute distress. Head/Face: Normocephalic, atraumatic. ENT: Moist Mucous membranes Cardiovascular: Regular rate Respiratory: Respirations even and unlabored. No increased work of breathing. Talking in full sentences Skin: Warm, dry with normal turgor. Normal color. Neuro: Awake and alert, GCS 15, oriented to person, place, time, and situation. Moves all extremities. Normal gait. 13:00 Musculoskeletal/extremity: Extremities: grossly normal except: noted in the right leg: pain, tenderness, ROM: intact in all extremities, Circulation is intact in all extremities. Sensation intact. Weight bearing: able to fully bear weight, Vital Signs: 12:58 BP 171 / 64; Pulse 58; Resp 18; Temp 99.5; Pulse Ox 10% ; Weight 71.21 kg; Height 4 ft. ap3 10 in. ; Pain 9/10; 13:00 BP 166 / 62; Pulse 62; Resp 16; Pulse Ox 99% ; ko1 12:58 Body Mass Index 32.81 (71.21 kg, 147.32 cm) ap3 12:58 Pain Scale: Adult ap3 MDM: 12:58 Patient medically screened. kb 13:01 Differential diagnosis: closed fracture, strain, DVT. Data reviewed: vital signs, kb nurses notes. 14:13 Counseling: I had a detailed discussion with the patient and/or guardian regarding the kb historical points, exam findings, and any diagnostic results supporting the discharge/admit diagnosis, radiology results, the need for outpatient follow up, a family practitioner, to return to the emergency department if symptoms worsen or persist or if there are any questions or concerns that arise at home. 10/02 12:59 Order name: Tib Fib Right XRAY; Complete Time: 14:08 kb 10/02 12:59 Order name: Femur Right XRAY; Complete Time: 14:07 kb 10/02 12:59 Order name: US Extremity Venous Unilateral Ltd; Complete Time: 13:52 kb Administered Medications: 14:14 CANCELLED (Duplicate Order): [id number] mg PO once kb 14:24 Drug: Hydrocodone-Acetaminophen PO (7.5 mg-325 mg) 1 tabs PO once Route: PO; ko1 14:40 Follow up: Response: No adverse reaction ko1 Disposition: 14:00 I was immediately available on-site in the Emergency Department for consultation in the ms3 care of the patient . Disposition Summary: 10/03/23 14:14 Discharge Ordered Notes: Location: Home kb Condition: Stable kb Diagnosis - Pain in right leg kb Followup: kb - With: Emergency Department - When: As needed - Reason: Worsening of condition Followup: kb - With: Private Physician - When: 2 - 3 days - Reason: Recheck today's complaints, Continuance of care, Re-evaluation by your physician Discharge Instructions: - Discharge Summary Sheet kb - Musculoskeletal Pain kb Forms: - Medication Reconciliation Form kb - Antibiotic Education kb - Prescription Opioid Use kb - Patient Portal Instructions kb - Leadership Thank You Letter kb Prescriptions: - Diclofenac Sodium 75 mg Oral tablet, delayed release (enteric coated) - take 1 tablet ORAL route 2 times per day As needed; 30 tablet; Refills: 0, kb Product Selection Permitted - orphenadrine citrate 100 mg Oral Tablet Sustained Release - take 1 tablet ORAL route 2 times per day As needed; 20 tablet; Refills: 0, kb Product Selection Permitted Signatures: Dispatcher [employer] Georgia Freitas FNP-C SCOREKEEPER-Cynthia Rodriguez, RN RN ap3 Jd Du, DO ms3 Awa Portillo, RN RN ko1 Corrections: (The following items were deleted from the chart) 12:59 12:59 Femur Right+RAD.RAD.BRZ ordered. EDMS EDMS 12:59 12:59 Extremity Venous Uni Ltd+US.RAD.BRZ ordered. EDMS EDMS 14:14 14:13 traMADol PO 50 mg PO once ordered. kb kb
[2023-10-03] MEDS ORDERED: HYDROCODONE/APAP 7.5/325 MG TAB ONE (14:27)
[2023-10-03 15:09] VITALS: BP 166/62; TEMP 99.5; O2SAT 99
== END 2023-10-03 14:40 | disposition home or self-care (01) ==
LOC: ER 12:47
DX: M79.604 Pain in right leg (principal); C41.9 Malignant neoplasm of bone and articular cartilage, unspecified; I10 Essential (primary) hypertension; Z88.0 Allergy status to penicillin
CPT/HCPCS: 93971; 99283